=== PATIENT | female | born 1945 | race Caucasian/White ===

== ENCOUNTER → 2019-08-23 06:00 | Outpatient (REF) | payer MEDICARE, OTHER, SELFPAY | LOC: ANHLAB 06:00 | PROVIDERS: PCP Family Medicine; Visit Provider Nurse Practitioner | DX: C44.629 Squamous cell carcinoma of skin of left upper limb, including shoulder (principal) | CPT/HCPCS: 88305; 88331; 88332 ==

== ENCOUNTER 2020-05-25 15:37 | Outpatient (CLI) | payer MEDICARE, OTHER, SELFPAY ==
--- NOTE | ~2020-05-25 | XR_ITS ---
EXAMINATION: XR hip LT min 2V DATE: 05/25/2020 16:01 INDICATION: Left hip pain post injury 2 weeks prior TECHNIQUE: Anteroposterior , frog leg and cross-table lateral views of the left hip were obtained. COMPARISON: None. FINDINGS: Bone alignment is normal. No fracture. Old osteoarthritis at the left hip and bilateral sacroiliac em ints. Several phleboliths in the deep pelvis. Moderate lumbar spondylosis. IMPRESSION: 1. Mild left hip osteoarthritis. No acute osseous abnormality. Reviewed, dictated and finalized at location A.
== END 2020-05-25 15:38 | disposition home or self-care (01) ==
PROVIDERS: PCP Family Medicine; Visit Provider Nurse Practitioner Family
DX: M16.12 Unilateral primary osteoarthritis, left hip (principal)
CPT/HCPCS: 73502

== ENCOUNTER 2020-08-30 14:11 | Outpatient (CLI) | payer MEDICARE, OTHER, SELFPAY ==
--- NOTE | ~2020-08-30 | MM_ITS ---
EXAMINATION: MM screening josé miguel BI w jerome HISTORY: Screening TECHNIQUE: Craniocaudal and mediolateral oblique 3-D tomosynthesis images were obtained and synthetic 2-D images were generated. CAD analysis was submitted and interpreted. COMPARISON: Comparison to multiple prior studies sequentially, with oldest reviewed study dated 12/28. BREAST PARENCHYMAL COMPOSITION: There are scattered areas of fibroglandular density. FINDINGS: There is no evidence of suspicious mass, calcification, or architectural distortion to sugg est malignancy in either breast. There has been no suspicious interval change. IMPRESSION: 1. No mammographic evidence of malignancy. 2. Recommend routine screening mammography in one year. BI-RADS Category 1: Negative Reviewed, dictated and finalized at location A. [employer]ER
== END 2020-08-30 14:12 | disposition home or self-care (01) ==
LOC: ANHIMG 14:13
PROVIDERS: PCP Family Medicine; Visit Provider Family Medicine
DX: Z12.31 Encounter for screening mammogram for malignant neoplasm of breast (principal)
CPT/HCPCS: 77063; 77067

== ENCOUNTER 2022-03-05 13:42 | Outpatient (CLI) | payer MEDICARE, OTHER, SELFPAY ==
--- NOTE | ~2022-03-05 | XR_ITS ---
XR chest 2V DATE: 03/05/2022 14:00 INDICATION: Chronic cough TECHNIQUE: PA and lateral views COMPARISON: 08/31/2018 CT pulmonary scan 08/31/2018 PA and lateral chest FINDINGS: Bilateral calcified pulmonary granulomas and calcified hilar and mediastinal lymph nodes, c onsistent with old pulmonary granulomatous disease. No pulmonary infiltrate or consolidation, pleural effusion or pulmonary vascular congestion or pneumo thorax. No hilar or mediastinal enlargement. Normal heart size. Aortic arch calcification and minimal aortic unfolding. Osteopenia. Mild degenerative spurring of the thoracic and upper lumbar spine. IMPRESSION: Old pulmonary granulomatous disease No active cardiopulmonary disease Aortic calcification No significant change since 08/31/2018 Reviewed, dictated and finalized at location B.
[2022-03-05 14:28] LABS: Basophils Percent Auto 0.5 % (0.2-1.2); Eosinophils Percent Auto 0.2 % (0-4.4); Hematocrit 41.7 % (37.0-47.0); Hemoglobin 13.6 g/dL (12.0-15.0); Immature Granulocyte Absolute 0.03 K/mm3 (0.00-0.031); Immature Granulocyte Percent A 0.4 % (0-0.5); Lymphocytes Absolute Auto 1.15 K/mm3 (0.9-3.2); Lymphocytes Percent Auto 13.7 % (18.3-44.2); Mean Corpuscular HGB Conc 32.6 g/dl (32-36); Mean Corpuscular Hemoglobin 30.8 pg (26-34); Mean Corpuscular Volume 94.6 fl (80-100); Mean Platelet Volume 8.8 fl (7.4-10.4); Monocytes Percent Auto 11.6 % (2.6-8.5); Neutrophils Absolute Auto 6.2 K/mm3 (1.3-6.7); Neutrophils Percent Auto 73.6 % (45.5-73.1); Platelet Count Result 274 k/mm3 (150-375); Red Blood Count 4.41 M/mm3 (4.2-5.4); Red Cell Distribution Width 12.8 % (11.5-14.5); White Blood Count 8.4 K/mm3 (4.5-10.0)
[2022-03-05 16:37] LABS: Alanine Aminotransferase 17 U/L (6-35); Albumin Level 4.3 g/dL (3.5-5.1); Alkaline Phosphatase 102 U/L (38-126); Anion Gap 6 mmol/L (8-16); Aspartate Amino Transferase 31 U/L (14-36); Bilirubin,Total 0.4 mg/dL (0.2-1.3); Blood Urea Nitrogen 17 mg/dL (7-17); Calcium 9.4 mg/dL (8.4-10.2); Carbon Dioxide 29 mmol/L (22-30); Chloride 102 mmol/L (98-107); Estimated Glomerular Filt Rate > 60; Glucose 99 mg/dL (65-110); Potassium 3.7 mmol/L (3.4-5.0); Sodium 137 mmol/L (137-145)
== END 2022-03-05 13:43 | disposition home or self-care (01) ==
PROVIDERS: PCP Family Medicine; Visit Provider Nurse Practitioner Family
DX: R05.3 Chronic cough (principal); E78.2 Mixed hyperlipidemia; Z13.29 Encounter for screening for other suspected endocrine disorder; I70.0 Atherosclerosis of aorta; R91.8 Other nonspecific abnormal finding of lung field
CPT/HCPCS: 36415; 71046; 80053; 84443; 85025

== ENCOUNTER 2022-03-26 07:45 | Outpatient (CLI) | payer MEDICARE, OTHER, SELFPAY ==
--- NOTE | ~2022-03-26 | XR_ITS ---
EXAMINATION: XR barium swallow DATE: 03/26/2022 08:05 INDICATION: Dysphagia, unspecified. TECHNIQUE: The patient drank thick barium, gas-producing crystals, and thin barium. Fluoroscopy of th e hypopharynx and esophagus was performed. Fluoroscopy exposure time was 0.4 minutes. The total numbe r of images was 224. The dose-area product was 0.775 Gy-cm^2. COMPARISON: Chest CT 08/31 2018 FINDINGS: There is no mass or stricture of the esophagus. There is decreased primary and secondary es ophageal peristalsis. Abnormal tertiary waves were noted. There is no hiatal hernia. IMPRESSION: 1. Severe esophageal dysmotility. Reviewed, dictated and finalized at location A.
== END 2022-03-26 07:46 | disposition home or self-care (01) ==
LOC: ANHIMG 07:48
PROVIDERS: PCP Family Medicine; Visit Provider Nurse Practitioner Family
DX: R13.10 Dysphagia, unspecified (principal)
CPT/HCPCS: 74220

== ENCOUNTER 2022-04-09 13:45 | Outpatient (CLI) | payer MEDICARE, OTHER, SELFPAY ==
--- NOTE | 2022-04-10 13:22 | WPDPFTINT ---
PFT Procedure Performed PFT Procedure Performed Spirometry with Pre/Post Bronchodilator Plethysmography (Lung Vol) Diffusing Cap (DLCO) Flow Vol Loop PFT Interpretation This is a pulmonary function test with pre and post-bronchodilator spirometry, plethysmography and diffusing capacity. The test was performed and results interpreted in accordance with the 2019 and 2005 ATS/ERS Task Force guidelines respectively using the Global Lung Function Initiative-2012 reference equations. Patient demonstrated good effort and cooperation. Reproducibility criteria were met. The quality of the pre bronchodilator spirometry maneuver was Grade A and post bronchodilator spirometry maneuver was Grade A. Findings: Spirometry: The contour the inspiratory and expiratory flow tracing are normal. The pre bronchodilator FVC is 2.60 L, 108% predicted. The pre bronchodilator FEV1 is 1.84 L, 100% predicted. The pre bronchodilator FEV1: FVC ratio is 71%. The post bronchodilator FVC is 2.71 L, representing a 4% increase. The post bronchodilator FEV1 is 1.94 of L, representing a 6% increase. The post bronchodilator FEV1: FVC ratio 72%. Plethysmography: The total lung capacity is 4.42 L, 94% predicted. The functional residual capacity is 2.33 L 86% predicted. The residual volume is 1.69 L, 75% predicted. Diffusing capacity: The diffusing capacity unadjusted For hemoglobin and carboxyhemoglobin is 13.1, 70% predicted. The diffusing capacity adjusted for alveolar volume is 3.75, 88% predicted. Impression: The spirometry is normal without evidence of an obstructive abnormality. There is no significant improvement after inhaling a single dose of albuterol. The lung volumes are normal. The diffusing capacity is normal. There are no prior studies for comparison
== END 2022-04-09 13:46 | disposition home or self-care (01) ==
LOC: ANHPFT 13:46
PROVIDERS: PCP Family Medicine; Visit Provider Nurse Practitioner Family
DX: R06.02 Shortness of breath (principal); R05.3 Chronic cough
CPT/HCPCS: 94060; 94726; 94729

== ENCOUNTER 2022-04-25 14:17 | Outpatient (CLI) | payer MEDICARE, OTHER, SELFPAY ==
--- NOTE | ~2022-04-25 | XR_ITS ---
XR chest 2V DATE: 04/25/2022 14:49 INDICATION: Left-sided chest pain, cough, yellow phlegm production. History of asthma. TECHNIQUE: PA and lateral views COMPARISON: 03/05/2022 PA and lateral chest FINDINGS: Normal heart size. Aortic arch calcification. Moderate hyperinflation. There is old pulmonary granulomatous disease. No pulmonary infiltrate or con solidation, pleural effusion or pulmonary vascular congestion or pneumothorax. Scoliosis and degenerative spurring of the thoracic and lumbar spine. IMPRESSION: Moderate hyperinflation; no active cardiopulmonary disease or significant change since Reviewed, dictated and finalized at location A. IMPRESSION: Moderate hyperinflation; no active cardiopulmonary disease or signi ficant change since 03/05/2022
== END 2022-04-25 14:18 | disposition home or self-care (01) ==
PROVIDERS: PCP Family Medicine; Visit Provider Nurse Practitioner Family
DX: R05.9 Cough, unspecified (principal); R91.8 Other nonspecific abnormal finding of lung field
CPT/HCPCS: 71046

== ENCOUNTER 2022-04-26 19:26 | Emergency (ER) | payer MEDICARE, OTHER, SELFPAY ==
[2022-04-26] VITALS (17 sets, daily range): BP systolic 156–171; BP diastolic 79–90; PULSE 71–92; RESP 0–24; TEMP 37.1; O2SAT 93–100
--- NOTE | ~2022-04-26 | XR_ITS ---
EXAMINATION: XR chest 1V portable DATE: 04/26/2022 20:09 INDICATION: 3 weeks of cough and shortness of breath TECHNIQUE: frontal view of the chest was obtained. COMPARISON: Chest radiograph dated 04/25/2022 FINDINGS: Again seen are a few scattered bilateral small calcified pulmonary nodules along with calcified bilat eral hilar and mediastinal lymph nodes consistent with old granulomatous disease. No new airspace opa cities, pulmonary edema, pleural effusion or pneumothorax. The cardiomediastinal silhouette is normal . Mild thoracolumbar levocurvature with moderate spondylosis. IMPRESSION: 1. No acute cardiopulmonary disease. Reviewed, dictated and finalized at location A.
--- NOTE | ~2022-04-26 | CT_ITS ---
EXAMINATION: CTA chest PE protocol DATE: 04/26/2022 22:04 INDICATION: Shortness of breath, COVID positive and elevated d-dimer. TECHNIQUE: Computed tomography (CT) pulmonary angiogram of the chest was performed with 100 mL Omnipa que-350 intravenous contrast. Additional 3D reconstructions utilizing coronal maximum intensity proje ction (MIP) were performed. Automated exposure control and iterative reconstruction technique were em ployed. The dose-length product was 237.90 mGy-cm. COMPARISON: 08/31/2018 FINDINGS: Excellent contrast opacification of the pulmonary arteries. There is mild streak artifact from dense contrast in the superior vena cava and right atrium. Mild to moderate scattered respiratory motion ar tifact. This decreases sensitivity in some of the smaller subsegmental pulmonary arteries. There are few scattered calcified pulmonary nodules along with calcified mediastinal and bilateral hilar lymph nodes consistent with old granulomatous disease. Mild atelectasis at the bilateral posterior lung bas es. No pneumonia, pulmonary edema, pleural effusion or pneumothorax. Heart size is normal. No pericar dial effusion. Thoracic aorta is normal in caliber with no dissection. Small sliding-type hiatal shane ia. Diffuse mild wall thickening in the mid to distal esophagus consistent with esophagitis which cou ld be related to reflux. No pathologically enlarged thoracic lymphadenopathy. Incompletely visualized at least 6.6 cm cyst in the right hepatic lobe. Moderate thoracic and lumbar spondylosis. IMPRESSION: 1. No pulmonary embolism. Sensitivity decreased in some of the smaller subsegmental pulmonary arterie s due to some scattered respiratory motion. 2. Small sliding-type hiatal hernia with wall thickening the mid to distal esophagus suggesting esoph agitis which could be due to reflux. Reviewed, dictated and finalized at location A. IMPRESSION: 1. No pulmonary embolism. Sensitivity decreased in some of the smaller subsegme ntal pulmonary arteries due to some scattered respiratory motion. 2. Small sliding-type hiatal hernia with wall thickening the mid to distal esop hagus suggesting esophagitis which could be due to reflux.
--- NOTE | 2022-04-26 19:39 | ECG_ITS ---
Measurements Intervals [place] Rate: 76 P: 54 MN: 171 QRS: -16 QRSD: 91 T: 50 QT: 401 QTc: 453 Interpretive Statements SINUS RHYTHM VOLTAGE CRITERIA FOR LVH BASELINE ARTIFACT- I, II, III, AVL BORDERLINE ECG NO PREVIOUS ECG AVAILABLE FOR COMPARISON Electronically Signed On 04-26-2022 20:39:40 CDT by Wyatt Shay D.O.
--- NOTE | 2022-04-26 19:40 | ED.GENADULT ---
HPI - General Adult General Chief complaint: Shortness of Breath/Dyspnea Stated complaint: SOB/ASTHMA Source: RN notes reviewed History of Present Illness HPI narrative: Patient presents emergency department from home via EMS for shortness of breath. Patient states has been feeling short of breath progressively for the past 5 weeks. She states that shortness of breath abdomen progressively worse and is worse with activity states has been associate with a cough this been yellow in color. States she only recently went to the doctor and was diagnosed with cystic lungs and been placed on an inhaler states she is post be seen a claim representative but is not seen 1 yet. She denies any fevers or chills chest pain abdominal pain nausea vomiting or any other symptoms Related Data Home Medications Medication Instructions Recorded Confirmed aspirin 81 mg tablet,delayed 81 mg PO DAILY 07/19/19 03/28/22 release (Adult Low Dose Aspirin) Allergies Allergy/AdvReac Type Severity Reaction Status Date / Time codeine Allergy Unknown Rash Verified 04/26/22 19:37 hydrochlorothiazide Allergy Unknown Unknown Verified 04/26/22 19:37 indapamide Allergy Unknown Unknown Verified 04/26/22 19:37 lisinopril Allergy Unknown Cough Verified 04/26/22 19:37 Review of Systems Review of Systems: Gen.: Denies fevers or chills ENT: Denies congestion Respiratory: See HPI CV: Denies chest pain or palpitations GI: Denies abdominal pain nausea, emesis or diarrhea Musculoskeletal: Denies back pain or muscle pain Neuro: Denies numbness, tingling, weakness or focal weakness Skin: Denies rash Except as documented, all other systems reviewed and negative [facility] Past Medical History Medical History BMI 24.0-24.9, adult High blood pressure Family History Family History Mother Hypertension Father Cerebrovascular accident Family history of lung cancer Family history of coronary artery disease Social History Social History Smoking status: Never smoker Alcohol intake: current Exam Narrative: APPEARANCE: No acute distress, nontoxic, resting in bed HEENT: Normocephalic, atraumatic OMM RESPIRATORY: No respiratory distress, wheezing throughout the bilateral lung vergara with decreased breath sounds in the bases no rhonchi rales CARDIOVASCULAR: Regular rate and rhythm without murmurs rubs or gallops. ABDOMINAL: Soft, nontender, nondistended, no rebound or guarding MUSCULOSKELETAl: Moves all extremities. No clubbing, cyanosis or edema. Bilateral calves soft and nontender NEURO: Awake and alert. Following commands, speech normal, no focal deficits SKIN:: Warm, dry. Normal Color PSYCHIATRIC: Normal affect/mood, Course Course Emergency Course: Patient states she is feeling much better repeat lung exam clear to auscultation bilaterally patient will get up and ambulate in the ED with pulse ox is staying in the mid 90s Dr. Bautista follow-up in 1-2 days for further on-call physician treatment and evaluation level paged for possible monoclonal antibody set up Discussed with patient results of workup and diagnosis. Discussed need for follow-up with primary care, proper use of medication, and reasons to return to the emergency department. Patient understands and agrees to current treatment plan patient states she has an inhaler at home Vital Signs Vital signs: Vital Signs Temperature 98.7 F 04/26/22 19:27 Pulse Rate 79 04/26/22 19:27 Respiratory Rate 23 H 04/26/22 19:27 Blood Pressure 164/90 H 04/26/22 19:27 Pulse Oximetry 93 04/26/22 19:27 Oxygen Delivery Room Air 04/26/22 19:27 Temperature 98.7 F 04/26/22 19:27 Pulse Rate 88 04/27/22 00:30 Respiratory Rate 17 04/27/22 00:30 Blood Pressure 156/81 H 04/26/22 22:16 Pulse Oximetry 98 04/27/22 00:30 Oxygen Deliver
[2022-04-26 20:02] LABS: Basophils Percent Auto 0.2 % (0.2-1.2); Eosinophils Absolute Auto 0.1 K/mm3 (0-0.3); Eosinophils Percent Auto 1.5 % (0-4.4); Hematocrit 43.1 % (37.0-47.0); Hemoglobin 14.1 g/dL (12.0-15.0); Immature Granulocyte Absolute 0.03 K/mm3 (0.00-0.031); Immature Granulocyte Percent A 0.3 % (0-0.5); Lymphocytes Absolute Auto 1.32 K/mm3 (0.9-3.2); Lymphocytes Percent Auto 13.7 % (18.3-44.2); Mean Corpuscular HGB Conc 32.7 g/dl (32-36); Mean Corpuscular Hemoglobin 31.2 pg (26-34); Mean Corpuscular Volume 95.4 fl (80-100); Mean Platelet Volume 8.9 fl (7.4-10.4); Monocytes Absolute Auto 0.6 K/mm3 (0.1-0.6); Monocytes Percent Auto 6.6 % (2.6-8.5); Neutrophils Absolute Auto 7.5 K/mm3 (1.3-6.7); Neutrophils Percent Auto 77.7 % (45.5-73.1); Platelet Count Result 210 k/mm3 (150-375); Red Blood Count 4.52 M/mm3 (4.2-5.4); White Blood Count 9.7 K/mm3 (4.5-10.0)
[2022-04-26 20:06] LABS: Lactic Acid Reflex 1.4 mmol/L (0.7-2.0)
[2022-04-26] MEDS: IPRATROPIUM BR 0.02% INH SOLN 0.5 MG/2.5 ML VIAL INHALATION (20:13)
[2022-04-26] MEDS: ALBUTEROL SULFATE NEB 2.5 MG/3 ML INH 5 MG INHALATION (20:14)
[2022-04-26] MEDS: methylPREDNISolone SOD SUCC 125 MG VIAL IV PUSH (20:15)
[2022-04-26 20:16] LABS: Partial Thromboplastin Time 21.6 SECONDS (22.3-36.8); Prothrombin Time 13.2 Seconds (11.1-14.7)
[2022-04-26 20:27] LABS: NT Pro B Type Natriuretic Pept 151 pg/mL (5-100); Troponin I < 0.012 ng/mL (0.000-0.034)
[2022-04-26 20:34] LABS: SARS-CoV-2 RNA PCR Positive
[2022-04-26 21:02] LABS: Alanine Aminotransferase 22 U/L (6-35); Albumin Level 4.1 g/dL (3.5-5.1); Alkaline Phosphatase 96 U/L (38-126); Anion Gap 11 mmol/L (8-16); Aspartate Amino Transferase 39 U/L (14-36); Bilirubin,Total 0.6 mg/dL (0.2-1.3); Blood Urea Nitrogen 17 mg/dL (7-17); Carbon Dioxide 24 mmol/L (22-30); Chloride 104 mmol/L (98-107); Estimated CRCL calculation 45 ml/min; Estimated Glomerular Filt Rate > 60; Glucose 107 mg/dL (65-110); Potassium 3.3 mmol/L (3.4-5.0); Sodium 139 mmol/L (137-145)
[2022-04-27] VITALS (7 sets, daily range): BP systolic 155–158; BP diastolic 78–89; PULSE 78–92; RESP 10–31; O2SAT 94–98
[2022-04-27] MEDS: POTASSIUM CHLORIDE 20 MEQ TABLET PO (01:22)
== END 2022-04-27 01:30 | disposition home or self-care (01) ==
PROVIDERS: Emergency Provider Emergency Medicine; PCP Family Medicine
DX: U07.1 COVID-19 (principal); I10 Essential (primary) hypertension; Z79.82 Long term (current) use of aspirin; Z79.51 Long term (current) use of inhaled steroids
CPT/HCPCS: 36415; 71045; 71275; 80053; 83605; 83880; 84484; 85025; 85380; 85610; 85730; 87040; 93005; 94640; 96374; 99284; A9270; C9803; J2930; Q9967; U0003; U0005

== ENCOUNTER 2022-05-11 12:06 | Outpatient (CLI) | payer MEDICARE, OTHER, SELFPAY ==
[2022-05-11 12:26] LABS: Cholesterol 274 mg/dL (0-200); HDL Direct 61 mg/dL; Triglycerides 161 mg/dL (<150)
[2022-05-11 12:37] LABS: LDL Cholesterol Direct 166 mg/dL
== END 2022-05-11 12:07 | disposition home or self-care (01) ==
LOC: ANHLAB 12:08
PROVIDERS: PCP Family Medicine; Visit Provider Internal Medicine Cardiovascular Disease
DX: E78.2 Mixed hyperlipidemia (principal)
CPT/HCPCS: 36415; 80061

== ENCOUNTER 2022-06-07 07:25 | Outpatient (CLI) | payer MEDICARE, OTHER, SELFPAY ==
--- NOTE | 2022-06-07 07:40 | ECHO_ITS ---
Patient Info Name: Silvia Dougherty Age: 76 years : 1945 Gender: Female Ht: 62 in Wt: 123 lbs BSA: 1.57 m2 HR: 62 bpm BP: 159 / 93 mmHg Technical Quality: Good Exam Date: 06/07/2022 7:59 AM Exam Location: [facility] Pulmonary Patient Status: Outpatient Admit Date: 06/07/2022 Staff Ordering Physician: Wyatt Shay DO Quality Coordinator: Farida Shields RDCS Attending Provider: Wyatt Shay DO Referring Physician: Jaspal HOLMAN; Exam Type: CA echo doppler color flow Study Info Indications R06.02 - Shortness of breath Complete two-dimensional, color flow and Doppler transthoracic echocardiogram is performed. Strain analysis performed. Summary 1. Complete two-dimensional, color flow and Doppler transthoracic echocardiogram is performed. 2. Left ventricular chamber dimension is normal. 3. Left ventricular systolic function is normal, estimated at 60-65%. 4. The left ventricular diastolic function is grade I diastolic dysfunction. 5. E/e' 16 is elevated. 6. Global longitudinal strain is slightly abnormal at -16.2%. 7. Left atrial chamber dimension is mildly enlarged. 8. There is mild aortic valve sclerosis. 9. There is mild mitral valve regurgitation. 10. No pulmonary hypertension, estimated pulmonary arterial systolic pressure is 21 mmHg. Left Ventricle E/e' 16 is elevated. Global longitudinal strain is slightly abnormal at -16.2%. Left ventricular chamber dimension is normal. Left ventricular systolic function is normal, estimated at 60-65%. The left ventricular diastolic function is grade I diastolic dysfunction. Right Ventricle Right ventricular chamber dimension is normal. Right ventricular systolic function is normal. Left Atria Left atrial chamber dimension is mildly enlarged. Right Atria Right atrial chamber dimension is normal. Aortic Valve The aortic valve is trileaflet. There is mild aortic valve sclerosis. There is no aortic valve stenosis. There is no aortic valve regurgitation. Pulmonic Valve There is no pulmonic regurgitation. Mitral Valve There is no mitral valve stenosis. There is mild mitral valve regurgitation. Tricuspid Valve There is no tricuspid valve regurgitation. No pulmonary hypertension, estimated pulmonary arterial systolic pressure is 21 mmHg. Pericardium/Pleural There is no pericardial effusion. Inferior Vena Cava Normal inferior vena cava with >50% collapse upon inspiration consistent with normal right atrial pressure, 5 mmHg. Aorta The aortic root size at the sinus of Valsalva is normal. Left Ventricular Outflow Tract Name Value Normal LVOT 2D LVOT Diameter 2.0 cm LVOT Doppler LVOT Peak Gradient 4 mmHg LVOT Mean Gradient 2 mmHg LVOT VTI 26 cm LVOT VTI/AV VTI Ratio 0.7 LVOT Stroke Volume 80 ml LVOT CO 4.4 l/min LVOT CI 2.8 l/min/m2 Pulmonic Valve
--- NOTE | 2022-06-07 07:41 | EST_ITS ---
Patient Info Name: Silvia Dougherty Age: 76 years : 1945 Gender: Female Ht: 62 in Wt: 123 lbs BSA: 1.57 m2 HR: 62 bpm BP: 163 / 93 mmHg Heart Rhythm: Sinus Rhythm Exam Date: 06/07/2022 8:27 AM Exam Location: [facility] Stress Patient Status: Outpatient Admit Date: 06/07/2022 Staff Ordering Physician: Wyatt Shay DO Attending Provider: Wyatt Shay DO Exercise Technologist: Flory Zaldivar CT Exercise Physician: Wyatt Shay DO Exam Type: CA stress test treadmill Study Info Indications R06.02 - Shortness of breath A treadmill exercise stress test was performed. Summary 1. 1. Negative Deuce exercise stress test for ischemic ST changes by ECG criteria. 2. 2. Good functional capacity, achieving 7 METs of workload. 3. 3. Baseline hypertension. 4. 4. Appropriate HR response to exercise. 5. 5. Appropriate HR recovery at 1 minute post exercise. 6. 6. No imaging with stress testing. 7. 7. Patient informed of the above results. Protocol: Deuce Stress ECG Details Stage: REST Duration (min): 1 min : 57 sec Speed (mph): 0.0 Grade (%): 0 HR (bpm): 62 SBP (mmHg): 190 DBP (mmHg): 99 METS: --- Stage: REST Duration (min): 10 min : 25 sec Speed (mph): 0.0 Grade (%): 0 HR (bpm): 66 SBP (mmHg): 163 DBP (mmHg): 93 METS: --- Stage: STAGE 1 Duration (min): 1 min : 0 sec Speed (mph): 1.7 Grade (%): 10 HR (bpm): 87 SBP (mmHg): 163 DBP (mmHg): 93 METS: --- Stage: STAGE 1 Duration (min): 2 min : 0 sec Speed (mph): 1.7 Grade (%): 10 HR (bpm): 101 SBP (mmHg): 163 DBP (mmHg): 93 METS: --- Stage: STAGE 1 Duration (min): 3 min : 0 sec Speed (mph): 1.7 Grade (%): 10 HR (bpm): 108 SBP (mmHg): 182 DBP (mmHg): 97 METS: --- Stage: STAGE 2 Duration (min): 1 min : 0 sec Speed (mph): 2.5 Grade (%): 12 HR (bpm): 116 SBP (mmHg): 182 DBP (mmHg): 97 METS: --- Stage: STAGE 2 Duration (min): 2 min : 0 sec Speed (mph): 2.5 Grade (%): 12 HR (bpm): 124 SBP (mmHg): 182 DBP (mmHg): 97 METS: --- Stage: STAGE 2 Duration (min): 3 min : 0 sec Speed (mph): 2.5 Grade (%): 12 HR (bpm): 129 SBP (mmHg): 174 DBP (mmHg): 108 METS: --- Stage: RECOVERY Duration (min): 0 min : 59 sec Speed (mph): 0.0 Grade (%): 0 HR (bpm): 103 SBP (mmHg): 189 DBP (mmHg): 107 METS: --- Stage: RECOVERY Duration (min): 1 min : 45 sec Speed (mph): 0.0 Grade (%): 0 HR (bpm): 80 SBP (mmHg): 189 DBP (mmHg): 107 METS: --- Rest HR: 66 bpm Peak HR: 129 bpm Rest Sys BP: 163 mmHg Peak Sys BP: 189 mmHg Max Pred HR: 142 bpm % Max Pred HR: 91 % Target HR: 121 bpm Max RPP: 24,381 bpm*mmHg Phillips Score: 0 Termination Reason: Reached target heart rate or workload Cardiac Symptoms: Shortness of breath Max ST Seg Deviation: -1.30 mm Total Time: 6 min : 0 sec Rest Ramey BP: 93 mmHg
== END 2022-06-07 07:26 | disposition home or self-care (01) ==
LOC: ANHCARD 07:26
PROVIDERS: PCP Family Medicine; Visit Provider Internal Medicine Cardiovascular Disease
DX: R06.02 Shortness of breath (principal); I08.0 Rheumatic disorders of both mitral and aortic valves
CPT/HCPCS: 93017; 93306

== ENCOUNTER 2022-07-13 11:54 | Outpatient (CLI) | payer MEDICARE, OTHER, SELFPAY ==
[2022-07-13 12:19] LABS: Alanine Aminotransferase 28 U/L (6-35); Albumin Level 4.2 g/dL (3.5-5.1); Alkaline Phosphatase 88 U/L (38-126); Anion Gap 5 mmol/L (8-16); Aspartate Amino Transferase 33 U/L (14-36); Bilirubin,Total 0.7 mg/dL (0.2-1.3); Blood Urea Nitrogen 16 mg/dL (7-17); Calcium 9.1 mg/dL (8.4-10.2); Carbon Dioxide 29 mmol/L (22-30); Chloride 104 mmol/L (98-107); Cholesterol 148 mg/dL (0-200); Estimated Glomerular Filt Rate > 60; Glucose 96 mg/dL (65-110); HDL Direct 59 mg/dL; Potassium 4.4 mmol/L (3.4-5.0); Sodium 138 mmol/L (137-145); Triglycerides 54 mg/dL (<150)
[2022-07-13 12:31] LABS: LDL Cholesterol Direct 63 mg/dL
== END 2022-07-13 11:55 | disposition home or self-care (01) ==
LOC: ANHLAB 11:56
PROVIDERS: PCP Family Medicine; Visit Provider Internal Medicine Cardiovascular Disease
DX: E78.2 Mixed hyperlipidemia (principal)
CPT/HCPCS: 36415; 80053; 80061

== ENCOUNTER 2022-07-25 00:27 | Day surgery (SDC) | payer MEDICARE, OTHER, SELFPAY ==
[2022-07-18 11:18] VITALS: BMI 22.6
--- NOTE | 2022-07-24 10:58 | PC.NURSE ---
During pt interview pt stated that she had a rash that her supervisor cooler service told her is very contagious by coughing and/or sneezing. Pt see's Dr. Keen. Pt signed a waiver in office for release of information regarding this, I spoke with Dr. Katlyn Isidro delinquency prevention officer and patient is not contagious. Dr. Keen spoke with pt during visit to sign release and gave her this information. It is okay for pt to proceed with procedure.
[2022-07-25 07:59] VITALS: BP 154/75; PULSE 63; RESP 18; TEMP 36.2; O2SAT 98
[2022-07-25] MEDS: LACTATED RINGERS 1,000 ML 150 ML IV CONT (08:14)
--- NOTE | 2022-07-25 08:37 | PM.HPGS ---
History of Present Illness History of Present Illness Consent: Risks, benefits, and alternatives have been discussed and questions answered. Patient agrees to proceed with procedure. Chief complaint: dysphagia Narrative: Silvia Dougherty is a 76 year old female Presents for EGD. Patient has difficulty swallowing. She states food will catch in her throat and has difficulty passing the esophagus. Previous CT scan suggested distal esophageal thickening raising the question of esophagitis. Patient denies any heartburn however. Patient also has a history of modified barium swallow that showed severe esophageal dysmotility. At this point patient presents for EGD to assess for esophageal narrowing and possible dilatation. Further recommendations may be given after endoscopy. Review of Systems Review of Systems: Review of systems noncontributory. [facility] Past Medical History Medical History BMI 24.0-24.9, adult High blood pressure Family History Family History Mother Hypertension Father Cerebrovascular accident Family history of lung cancer Family history of coronary artery disease Hypertension Sibling No problems noted. 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 Gender identity (if verbalized by the patient): Female Spiritual care concerns: No Meds Home Medications and Allergies Home Medications Medication Instructions Recorded Confirmed Type aspirin 81 mg tablet,delayed 81 mg PO DAILY 07/19/19 07/18/22 History release (Adult Low Dose Aspirin) conjugated estrogens 0.625 mg See Rx Instructions .Route 08/21/20 07/18/22 Rx tablet (Premarin) .COMPLEX #90 tabs triamterene 75 0.5 tablet PO DAILY 05/10/22 07/18/22 History mg-hydrochlorothiazide 50 mg tablet atorvastatin 40 mg tablet 40 mg PO DAILY #90 tabs 05/13/22 07/18/22 Rx halobetasol propionate 0.05 % 1 applic topical BID 07/18/22 07/18/22 History topical cream Allergies Allergy/AdvReac Type Severity Reaction Status Date / Time codeine Allergy Unknown Rash Verified 07/25/22 07:57 indapamide Allergy Unknown Unknown Verified 07/25/22 07:57 Vital Signs Vital Signs - 24 hr 07/25/22 07:59 Temperature 97.1 F L Pulse Rate 63 Respiratory Rate 18 Blood Pressure 154/75 H Pulse Oximetry 98 Oxygen Delivery Room Air Exam Narrative: Physical exam reveals patient be alert. Vital signs stable. HEENT exam is unremarkable. Patient is anicteric. Lungs are clear to auscultation and percussion. Heart is without murmur or extra sounds. Abdomen bowel sounds present soft nontender with no organomegaly. Digital external rectal exam is normal. Assessment and Plan Assessment and plan (1) Dysphagia: Code(s): R13.10 - Dysphagia, unspecified Status: Acute Assessment and Plan: Patient has difficulty swallowing. Plan for EGD to assess for esophageal narrowing and possible dilatation. Further recommendations may be given after endoscopy. (2) Esophageal dysmotility: Code(s): K22.4 - Dyskinesia of esophagus Status: Acute Assessment and Plan: Soft diet, elevate head of bed her helpful. Difficult to overcome esophageal dysmotility.
--- NOTE | 2022-07-25 09:22 | WPDANESEPPF ---
Anes - Initial Pre Proc Eval Procedure: Operation Date: 07/25/22 09:15 Proposed Procedures p Esophagogastroduodenoscopy EGD - Anand Pham MD Date/Time: 07/25/22 09:22 Surgeon: Anand Pham MD Pre Op Diagnosis: dysphagia Patient Data Age: 76 Gender: F Height: 1.57 m Weight: 61.7 kg Last Vital Signs Temp 97.1 F L 07/25/22 07:59 Pulse 63 07/25/22 07:59 Resp 18 07/25/22 07:59 BP 154/75 H 07/25/22 07:59 Pulse Ox 98 07/25/22 07:59 O2 Del Method Room Air 07/25/22 07:59 Allergies Allergy/AdvReac Type Severity Reaction Status Date / Time codeine Allergy Unknown Rash Verified 07/25/22 07:57 indapamide Allergy Unknown Unknown Verified 07/25/22 07:57 Home Medications Medication Instructions Recorded Confirmed Type aspirin 81 mg tablet,delayed 81 mg PO DAILY 07/19/19 07/18/22 History release (Adult Low Dose Aspirin) conjugated estrogens 0.625 mg See Rx Instructions .Route 08/21/20 07/18/22 Rx tablet (Premarin) .COMPLEX #90 tabs triamterene 75 0.5 tablet PO DAILY 05/10/22 07/18/22 History mg-hydrochlorothiazide 50 mg tablet atorvastatin 40 mg tablet 40 mg PO DAILY #90 tabs 05/13/22 07/18/22 Rx halobetasol propionate 0.05 % 1 applic topical BID 07/18/22 07/18/22 History topical cream Patient hx anesthesia problems: none Family hx anesthesia problems: none Results Review: All pre-operative results and documents have been reviewed as part of the pre-operative evaluation. [facility] Past Medical History Medical History BMI 24.0-24.9, adult High blood pressure Family History Family History Mother Hypertension Father Cerebrovascular accident Family history of lung cancer Family history of coronary artery disease Hypertension Sibling No problems noted. 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 Gender identity (if verbalized by the patient): Female Spiritual care concerns: No Anes - Eval Final PreProcedure Day of Procedure 07/25/22 09:22 Patient weight: normal Heart: regular rate and rhythm Lungs: clear to auscultation Airway: Mallampati scale class II Neurological: alert and oriented Last oral intake: >/= 8 hours ASA classification: II Emergent: no Anesthetic plan: proceed Anesthesia type and monitoring: general GIVS and standard monitoring Results Review: All pre-operative results and documents have been reviewed as part of the pre-operative evaluation. Informed Consent: The patient's anesthetic plan and its attendant risks and benefits were discussed with the patient/family/POA. Questions were solicited and answers provided to the satisfaction of the patient/family/POA.
[2022-07-25 09:36] VITALS: BP 145/73; PULSE 65; RESP 20; O2SAT 96
[2022-07-25 09:46] VITALS: BP 161/81; PULSE 60; RESP 23; O2SAT 99
[2022-07-25 09:56] VITALS: BP 166/78; PULSE 61; RESP 24; O2SAT 98
== END 2022-07-25 10:10 | disposition home or self-care (01) ==
PROVIDERS: PCP Family Medicine; Visit Provider Internal Medicine Gastroenterology
PROC: 0DJ08ZZ Inspection of Upper Intestinal Tract, Via Natural or Artificial Opening Endoscopic (ICD-10-PCS; CPT 43235; principal; 2022-07-25 09:15)
DX: R13.10 Dysphagia, unspecified (principal); K22.4 Dyskinesia of esophagus; Q39.4 Esophageal web; Z79.82 Long term (current) use of aspirin
CPT/HCPCS: 43235; 43450; J2704; J7120

== ENCOUNTER 2022-09-07 15:12 | Emergency (ER) | payer MEDICARE, OTHER, SELFPAY ==
[2022-09-07 15:37] VITALS: BP 155/72; PULSE 72; RESP 16; TEMP 36.3; O2SAT 96
--- NOTE | 2022-09-07 17:02 | ED.ANIMALBIT ---
HPI - Animal Bite General Chief Complaint: Animal Bite Stated Complaint: animal bite Time Seen by Provider: 09/07/22 17:02 History of Present Illness HPI narrative: 68-year-old female presents emergency room for evaluation of a cat bite to her right forearm. States that she was bitten multiple times by her cat yesterday morning. States the cat's vaccination status is up-to-date. Patient tetanus status is up-to-date. Patient states that she has been taking an old prescription of amoxicillin given to her by her primary care provider several years ago. Related Data Home Medications Medication Instructions Recorded Confirmed aspirin 81 mg tablet,delayed 81 mg PO DAILY 07/19/19 07/18/22 release (Adult Low Dose Aspirin) triamterene 75 0.5 tablet PO DAILY 05/10/22 07/18/22 mg-hydrochlorothiazide 50 mg tablet halobetasol propionate 0.05 % 1 applic topical BID 07/18/22 07/18/22 topical cream Allergies Allergy/AdvReac Type Severity Reaction Status Date / Time codeine Allergy Unknown Rash Verified 09/07/22 15:41 indapamide Allergy Unknown Unknown Verified 09/07/22 15:41 Review of Systems Review of Systems: CONSTITUTIONAL: Denies fever, chills, or sweats. EYES: Denies visual changes, redness, or discharge. ENT: Denies rhinorrhea, congestion, sore throat, or otalgia. CARDIOVASCULAR: Denies chest pain, palpitations, or edema. RESPIRATORY: Denies cough or dyspnea. GASTROINTESTINAL: Denies abdominal pain, nausea, vomiting, or diarrhea. GENITOURINARY: Denies dysuria or hematuria. SKIN: Denies rash or itching. MUSCULOSKELETAL: Denies back pain, joint pain, or myalgia. NEUROLOGIC: Denies headache, numbness, dizziness, or weakness. PSYCHIATRIC: Denies anxiety or depression. [facility] Past Medical History Medical History BMI 24.0-24.9, adult High blood pressure Family History Family History Mother Hypertension Father Cerebrovascular accident Family history of lung cancer Family history of coronary artery disease Hypertension Sibling No problems noted. 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 Gender identity (if verbalized by the patient): Female Spiritual care concerns: No Exam Narrative: GENERAL: Well-appearing, well-nourished, no physical limitations, and in no acute distress. HEAD: Normocephalic, atraumatic. EYES: Conjunctivae normal, PERRLA and EOMI. CHEST: Clear to auscultation. No respiratory distress. No wheezes rales or rhonchi. HEART: Regular rate and rhythm. No murmur heard. Normal peripheral pulses. EXTREMITIES: Normal range of motion. No edema. No clubbing or cyanosis SKIN: Right forearm: Multiple superficial puncture bell to lives anterior posterior surfaces of the right forearm surrounding erythema. No signs of lymphangitic spread. Full range of motion of elbow and radiocarpal joints. No distal soft tissue swelling. Neurovascular is intact distally. NEURO: No focal deficits. Alert and oriented x3. MAEW. CN's II-XI intact bilaterally, normal gait PSYCH: Cooperative. Normal mood and affect. Course Vital Signs Vital signs: Vital Signs Temperature 36.3 C L 09/07/22 15:37 Pulse Rate 72 09/07/22 15:37 Respiratory Rate 16 09/07/22 15:37 Blood Pressure 155/72 H 09/07/22 15:37 Pulse Oximetry 96 09/07/22 15:37 Temperature 36.3 C L 09/07/22 15:37 Pulse Rate 72 09/07/22 15:37 Respiratory Rate 16 09/07/22 15:37 Blood Pressure 155/72 H 09/07/22 15:37
[2022-09-07] MEDS: TETANUS,DIPHTHERIA,AC PERTUSSIS ADULT (0.5 ML) BOOSTRIX IM (17:16)
== END 2022-09-07 17:17 | disposition home or self-care (01) ==
LOC: ANHED 17:08
PROVIDERS: Emergency Provider Nurse Practitioner Family; PCP Family Medicine
DX: S51.851A Open bite of right forearm, initial encounter (principal); Z23 Encounter for immunization; I10 Essential (primary) hypertension; Z77.22 Contact with and (suspected) exposure to environmental tobacco smoke (acute) (chronic); W55.01XA Bitten by cat, initial encounter
CPT/HCPCS: 90471; 90715; 99283

== ENCOUNTER 2022-09-19 13:06 | Outpatient (CLI) | payer MEDICARE, OTHER, SELFPAY ==
[2022-09-19 13:42] LABS: Anion Gap 5 mmol/L (8-16); Blood Urea Nitrogen 18 mg/dL (7-17); Calcium 9.2 mg/dL (8.4-10.2); Carbon Dioxide 33 mmol/L (22-30); Chloride 101 mmol/L (98-107); Estimated Glomerular Filt Rate > 60; Glucose 97 mg/dL (65-110); Sodium 139 mmol/L (137-145)
== END 2022-09-19 13:07 | disposition home or self-care (01) ==
LOC: ANHLAB 13:08
PROVIDERS: PCP Family Medicine; Visit Provider Nurse Practitioner Family
DX: I10 Essential (primary) hypertension (principal)
CPT/HCPCS: 36415; 80048

== ENCOUNTER 2022-12-31 10:25 | Outpatient (CLI) | payer MEDICARE, OTHER, SELFPAY ==
--- NOTE | ~2022-12-31 | MM_ITS ---
EXAMINATION: MM screening [facility] BI w [facility] HISTORY: Screening mammogram TECHNIQUE: Craniocaudal and mediolateral oblique 3-D tomosynthesis images were obtained and synthetic 2-D images were generated. CAD analysis was submitted and interpreted. COMPARISON: 09/17/2020, 08/03/2019, 05/02/2016 BREAST PARENCHYMAL COMPOSITION: There are scattered areas of fibroglandular density. FINDINGS: No suspicious mass, calcification, or architectural distortion are identified in either lauro ast to suggest malignancy. There has been no suspicious interval change. IMPRESSION: 1. No mammographic evidence of malignancy. 2. Recommend routine screening mammography in one year. BI-RADS Category 1: Negative Reviewed, dictated and finalized at location A.
== END 2022-12-31 10:26 | disposition home or self-care (01) ==
PROVIDERS: PCP Family Medicine; Visit Provider Family Medicine
DX: Z12.31 Encounter for screening mammogram for malignant neoplasm of breast (principal)
CPT/HCPCS: 77063; 77067

== ENCOUNTER 2023-01-03 13:48 | Outpatient (CLI) | payer MEDICARE, OTHER, SELFPAY ==
--- NOTE | ~2023-01-03 | XR_ITS ---
XR shoulder RT min 2V 01/03/2023 14:10 Indication: Right shoulder pain. Limited range of motion. Procedure: 4 views right shoulder Comparison: 08/14/2009 Findings: There is mild polyarticular osteoarthritis of the right shoulder. No fracture, subluxation or dislocation. No significant soft tissue abnormality. Impression: 1: Mild polyarticular osteoarthritis. Reviewed, dictated and finalized at location B. Impression: 1: Mild polyarticular osteoarthritis.
== END 2023-01-03 13:49 | disposition home or self-care (01) ==
PROVIDERS: PCP Family Medicine; Visit Provider Family Medicine
DX: M19.011 Primary osteoarthritis, right shoulder (principal)
CPT/HCPCS: 73030

== ENCOUNTER 2023-01-07 11:25 | Emergency (ER) | payer MEDICARE, OTHER, SELFPAY ==
[2023-01-07 11:29] VITALS: BP 144/90; PULSE 100; RESP 16; TEMP 36.3; O2SAT 100
--- NOTE | 2023-01-07 12:20 | ED.FEMALEGU ---
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 She denies any fever, chills, nausea, vomiting, patient blaming tight large ann-pad at that area at that time Related Data Home Medications Medication Instructions Recorded Confirmed aspirin 81 mg tablet,delayed 81 mg PO DAILY 07/19/19 01/03/23 release (Adult Low Dose Aspirin) triamterene 75 0.5 tablet PO DAILY 05/10/22 01/03/23 mg-hydrochlorothiazide 50 mg tablet halobetasol propionate 0.05 % 1 applic topical BID 07/18/22 01/03/23 topical cream Allergies Allergy/AdvReac Type Severity Reaction Status Date / Time codeine Allergy Unknown Rash Verified 01/07/23 12:13 indapamide Allergy Unknown Unknown Verified 01/07/23 12:13 Review of Systems Review of Systems: All systems reviewed & are unremarkable except as noted in HPI and below PMFSH Past Medical History Medical History Acute cystitis Bladder prolapse, female, acquired BMI 24.0-24.9, adult Face pain High blood pressure Left-sided chest wall pain Tendinopathy of left shoulder Family History Family History Mother Hypertension Father Cerebrovascular accident Family history of lung cancer Family history of coronary artery disease Hypertension Sibling No problems noted. 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 Gender identity (if verbalized by the patient): Female Spiritual care concerns: No Exam Narrative: General appearance: Well-developed, well-nourished Skin: Pelvic exam showed extensive blisters with erythematous base including the right labia, right perineum and right buttocks consistent with shingles Head: Normocephalic, nontraumatic Eyes: Clear conjun said so you are looking for something else not alcohol not regular alcoholctiva ENT: Oropharynx normal, ears normal, nose normal Neck: Supple, nontender Chest and respiratory: Airway patent, no respiratory distress, no accessory muscle use Heart: Regular rate/rhythm Abdomen: Soft, nontender, no organomegaly, quiet bowel sounds Vascular: Normal peripheral pulses, normal capillary refill. Musculoskeletal: Normal range of motion, nontender back Neurologic: Alert and oriented ?3, INTRAOPERATIVE NEURO TECH is normal as tested, no gross motor deficit Course Course Emergency Course: Stable Vital Signs Vital signs: Vital Signs Temperature 36.3 C L 01/07/23 11:29 Pulse Rate 100 01/07/23 11:29 Respiratory Rate 16 01/07/23 11:29 Blood Pressure 144/90 H 01/07/23 11:29 Pulse Oximetry 100 01/07/23 11:29 Oxygen Delivery Room Air 01/07/23 11:29 Temperature 36.3 C L 01/07/23 11:29 Pulse Rate 100 01/07/23 11:29 Respiratory Rate 16 01/07/23 11:29 Blood Pressure 144/90 H 01/07/23 11:29 Pulse Oximetry 100 01/07/23 11:29 Oxygen Delivery Room Air 01/07/23 11:29
== END 2023-01-07 12:55 | disposition home or self-care (01) ==
PROVIDERS: Emergency Provider Emergency Medicine; PCP Family Medicine
DX: B02.9 Zoster without complications (principal); Z79.82 Long term (current) use of aspirin; I10 Essential (primary) hypertension; Z77.22 Contact with and (suspected) exposure to environmental tobacco smoke (acute) (chronic)
CPT/HCPCS: 99283

== ENCOUNTER 2023-02-10 15:30 | Outpatient (RCR) | payer MEDICARE, OTHER, SELFPAY ==
[2023-02-03 14:30] VITALS: BP_SYST 155
--- NOTE | 2023-02-03 15:34 | PTOPEVAL1 ---
Assessment and note entered by Avis Subramanian, PT Evaluation Information Assessment Status Evaluation Diagnosis R shoulder pain Onset Sep 2022 Subjective Information woke up one morning and shoulder was out of socket and hurt; since Sep, hurts more; can use the arm and does not hurt anymore than if do not do anything; mopping and cleaning really hurts it; is able to do all of her yard and home tasks--shoulder hurts, but can do everything; Reported Pain Level Pain Score Self Report Additional Pain Score Comments has been staying at 6- 8/10 in the past week, hurts all the time; top and posterior shoulder joint, biceps, also hurts in neck and anterior trunk/chest increase pain with pulling arm backwards, cannot lie on R arm;mopping, cleaning home decrease pain- not lie on R side; is not taking any pain meds; is not using heat/ ice --instruct on PRN use; educated for support to arm with sitting; Assessment PT Clinical Summary Silvia has the diagnosis of R shoulder pain. She does not report any injury or trauma to her shoulder, but woke up one morning and it was out of the socket. She is active and does all of her yard and home tasks, lifting groceries and cutting branches outside. With the evaluation, pain increases with all motions of R shoulder-- flexion, abduction, IR and ER; she has painful arcs of motion and tenderness with palpation over anterior and lateral GH joint; she has rounded position of GH joint and forward rotation of R shoulder and trunk and decreased strength of R shoulder; cervical tightness of rotation R and L with pain. Skilled PT services are indicated for modalities to decrease pain, therapeutic exercises to stretch and strengthen cervical-thoracic/ scapular and shoulder complex, education for home exercises and posture correction. Plan of Care Interventions Electrical Stimulation,Hot Pack/Cold Pack,Manual Therapy,Neuro Re-education,Patient Education,Therapeutic Activities,Therapeutic Exercise,Ultrasound,Other Other Interventions [facility] Indicated Yes Treatment Frequency and 2x/wk for 4 weeks Duration T
--- NOTE | 2023-02-03 15:35 | PCPTNOTE ---
pt reports she will be out of town from February 14 to February 25;
--- NOTE | 2023-02-06 13:15 | PCPTNOTE ---
Pt cancelled due to illness.
--- NOTE | 2023-03-03 10:59 | PCPTNOTE ---
pt called and canceled today's reeval appt; stated she would call later to reschedule.
--- NOTE | 2023-04-07 09:23 | PTOPDC ---
Assessment and note entered by Avis Subramanian, PT Evaluation Information Assessment Status Discharge - Pt Not Present Diagnosis R shoulder pain Onset Sep 2022 Assessment PT Clinical Summary Silvia has received the PT evaluation on February 03 and one treatment session on . She did not return for additional therapy. The goals were not addressed. [facility] services. Plan of Care PT Services Indicated No
== END 2023-04-07 10:51 | disposition home or self-care (01) ==
LOC: ANHPT 15:30
PROVIDERS: PCP Family Medicine; Visit Provider Family Medicine
DX: M67.912 Unspecified disorder of synovium and tendon, left shoulder (principal)
CPT/HCPCS: 97110; 97140; 97161

== ENCOUNTER 2023-04-23 06:36 | Emergency (ER) | payer MEDICARE, OTHER, SELFPAY ==
--- NOTE | ~2023-04-23 | XR_ITS ---
EXAMINATION: XR chest 1V DATE: 04/23/2023 09:41 INDICATION: Weakness. TECHNIQUE: A single frontal view of the chest was obtained. COMPARISON: Chest single view 04/26/2022 FINDINGS: Calcified bilateral pulmonary nodules and calcified hilar and mediastinal lymph nodes are c onsistent with old granulomatous disease. No pleural effusion or pneumothorax. The heart size is norm al. IMPRESSION: 1. No acute cardiopulmonary disease. Reviewed, dictated and finalized at location A.
--- NOTE | ~2023-04-23 | XR_ITS ---
EXAMINATION: XR abdomen/kub 1V DATE: 04/23/2023 07:59 INDICATION: Constipation. TECHNIQUE: A supine view of the abdomen was obtained. COMPARISON: None. FINDINGS: There are no dilated loops of bowel. There is a moderate volume of stool in the colon. IMPRESSION: 1. Nonobstructive bowel gas pattern. Reviewed, dictated and finalized at location A.
--- NOTE | ~2023-04-23 | CT_ITS ---
EXAMINATION: CT abdomen pelvis w con DATE: 04/23/2023 09:29 INDICATION: Status post bladder suspension few days prior presenting with constipation, lower abdomin al pain and difficulty urinating TECHNIQUE: Computed tomography (CT) of the abdomen and pelvis was performed with 100 mL Omnipaque-350 intravenous contrast. Automated exposure control and iterative reconstruction technique were employe d. The dose-length product was 303.06 mGy-cm. COMPARISON: 03/07/2017 FINDINGS: Scattered calcified nodules at the bilateral lung bases along with calcified mediastinal and bilatera l hilar lymph nodes and multiple scattered splenic calcific lesions all consistent with old granuloma tous disease. Heart size is normal. Aortic valve calcification. No pericardial or pleural effusion. S mall sliding-type hiatal hernia. 6.6 cm cyst with single thin internal septation at the caudal aspect of the liver. Gallbladder, pancreas, bilateral adrenal glands and kidneys are normal. The uterus is not identified and has likely been surgically resected. There appears to be some edema around the urethra the cephalad portion which the bladder outlet is deviated towards the right in this likely re lated to the reported recent surgery. Bladder is otherwise unremarkable. There is mild to moderate co lonic diverticulosis with a sigmoid predominance and without adjacent inflammatory change to suggest diverticulitis. There is a short segment of mild wall thickening at the distalmost sigmoid colon whic h could be related to decompressed state or a minimal focal colitis which given the focality and loca tion is likely related to the reported recent rectal suspension. There is fluid in the proximal colon and moderate amount of stool in the more distal colon. No dilated small bowel to suggest obstruction . Normal appendix. Small amount of free fluid in the pelvis which could be either physiologic or reac tive related to the recent surgery. No abscess or free intraperitoneal gas. No pathologically enlarge d abdominal or pelvic lymphadenopathy. Mild thoracolumbar levoscoliosis with moderate to severe spond ylosis. 5 mm anterolisthesis L4 on L5 2 mm anterolisthesis L3 on L4. IMPRESSION: 1. . Peripheral edema and mild rightward deviation of the urethra at the bladder outlet, mild wall th ickening along a short segment of the distalmost sigmoid colon along with a minimal amount of ascites in the pelvis, all likely related to the reported recent bladder and rectal suspension. 2. Moderate amount of stool in the distal colon which could be related to constipation. No dilated jalil wel to suggest obstruction. 3. Sigmoid predominant diverticulosis. 4. Small sliding-type hiatal hernia. Reviewed, dictated and finalized at location A. IMPRESSION: 1. . Peripheral edema and mild rightward deviation of the urethra at the bladde r outlet, mild wall thickening along a short segment of the distalmost sigmoid colon along with a minimal amount of ascites in the pelvis, all likely related to the reported recent bladder and rectal suspension. 2. Moderate amount of stool in the distal colon which could be related to const ipation. No dilated bowel to suggest obstruction. 3. Sigmoid predominant diverticulosis. 4. Small sliding-type hiatal hernia.
[2023-04-23 06:41] VITALS: BP 150/64; PULSE 71; RESP 18; TEMP 36.5; O2SAT 97
--- NOTE | 2023-04-23 08:27 | ECG_ITS ---
Measurements Intervals [place] Rate: 73 P: 50 [place]: 175 QRS: -9 QRSD: 91 T: 15 QT: 390 QTc: 432 Interpretive Statements SINUS RHYTHM VOLTAGE CRITERIA FOR LVH BASELINE ARTIFACT- I, II, III, AVR, AVL, AVF, V1 BORDERLINE ECG COMPARED TO ECG 04/26/2022 20:18:27 NO SIGNIFICANT CHANGES Electronically Signed On 04-23-2023 9:58:53 CDT by Wyatt Shay D.O.
[2023-04-23] MEDS: SODIUM CHLORIDE 0.9% IV 1,000 ML 999 ML IV CONT (08:52)
[2023-04-23 09:05] LABS: Basophils Percent Auto 0.5 % (0.2-1.2); Eosinophils Absolute Auto 0.1 K/mm3 (0-0.3); Eosinophils Percent Auto 1.2 % (0-4.4); Hematocrit 41.9 % (37.0-47.0); Hemoglobin 13.8 g/dL (12.0-15.0); Immature Granulocyte Absolute 0.02 K/mm3 (0.00-0.031); Immature Granulocyte Percent A 0.3 % (0-0.5); Lymphocytes Absolute Auto 0.97 K/mm3 (0.9-3.2); Lymphocytes Percent Auto 14.8 % (18.3-44.2); Mean Corpuscular HGB Conc 32.9 g/dl (32-36); Mean Corpuscular Volume 94.2 fl (80-100); Mean Platelet Volume 8.6 fl (7.4-10.4); Monocytes Absolute Auto 0.7 K/mm3 (0.1-0.6); Monocytes Percent Auto 10.8 % (2.6-8.5); Neutrophils Absolute Auto 4.8 K/mm3 (1.3-6.7); Neutrophils Percent Auto 72.4 % (45.5-73.1); Platelet Count Result 183 k/mm3 (150-375); Red Blood Count 4.45 M/mm3 (4.2-5.4); Red Cell Distribution Width 12.6 % (11.5-14.5); White Blood Count 6.6 K/mm3 (4.5-10.0)
--- NOTE | 2023-04-23 09:05 | ED.ABDPAIN ---
HPI - Abdominal Pain General Chief Complaint: Abdominal Pain Stated Complaint: constipation Time Seen by Provider: 04/23/23 08:17 History of Present Illness HPI narrative: This is a 77-year-old female, past history of hypertension and recent rectal and bladder surgery at [facility] 6 days ago, who presents emergency department complaining of lower abdominal pain and constipation. The patient states despite taking laxatives and avoiding opioid pain medications she has not yet been able to have a bowel movement. She is passing gas. She complains of some nausea and dull pain rated 7/10. She also complains of dull epigastric pain rated 4/10, worsened with deep breathing. She denies bleeding, dysuria and has no other complaints at this time. Related Data Home Medications Medication Instructions Recorded Confirmed aspirin 81 mg tablet,delayed 81 mg PO DAILY 07/19/19 03/13/23 release (Adult Low Dose Aspirin) triamterene 75 0.5 tablet PO DAILY 05/10/22 03/13/23 mg-hydrochlorothiazide 50 mg tablet halobetasol propionate 0.05 % 1 applic topical BID 07/18/22 03/13/23 topical cream Allergies Allergy/AdvReac Type Severity Reaction Status Date / Time codeine Allergy Unknown Rash Verified 03/13/23 15:22 indapamide Allergy Unknown Unknown Verified 03/13/23 15:22 Review of Systems Review of Systems: CONSTITUTIONAL: Denies fever, chills, or sweats. CARDIOVASCULAR: Chest pain denies palpitations, or edema. RESPIRATORY: Denies cough or dyspnea. GASTROINTESTINAL: Abdominal pain, nausea denies vomiting, or diarrhea. GENITOURINARY: Denies dysuria or hematuria. SKIN: Denies rash or itching. MUSCULOSKELETAL: Denies back pain, joint pain, or myalgia. NEUROLOGIC: Denies headache, numbness, dizziness, or weakness. PSYCHIATRIC: Denies anxiety or depression. [facility] Past Medical History Medical History Acute cystitis Bladder prolapse, female, acquired BMI 24.0-24.9, adult Face pain High blood pressure Left-sided chest wall pain Tendinopathy of left shoulder Family History Family History Mother Hypertension Father Cerebrovascular accident Family history of lung cancer Family history of coronary artery disease Hypertension Sibling No problems noted. 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 Gender identity (if verbalized by the patient): Female Spiritual care concerns: No Exam Narrative: GENERAL: Well-developed, well-nourished, and in no acute distress. HEAD: Normocephalic, atraumatic. EYES: PERRLA and EOMI. ENT: Nares clear, no rhinorrhea or epistaxis. Mucous membranes moist. Oropharynx without tonsillar hypertrophy exudate or other lesions. CHEST: Clear to auscultation. No respiratory distress. No wheezes rales or rhonchi HEART: Regular rate and rhythm. No murmur heard. Normal peripheral pulses. ABDOMEN: Soft, tender palpation in the suprapubic region, without rebound and some active guarding, mildly distended, normal active bowel sounds. No CVA tenderness to palpation EXTREMITIES: Normal range of motion. No edema. SKIN: Warm, dry, no rash. NEURO: Alert and oriented x3. Moving all 4 limbs purposefully. PSYCH: Normal mood and affect. Course Course Emergency Course: 09:56 - CBC unremarkable. Chemistries within normal limits with a lactic acid of 0.9. Initial troponin negative. The patient's UA is consistent with UTI. CT abdomen pelvis shows changes consistent with rec
[2023-04-23 09:09] LABS: Appearance Urine Turbid (Clear); Bacteria Urine Rare /hpf; Bilirubin Urine Negative (Negative); Blood Urine Trace (Negative); Color Urine Yellow (Yellow); Glucose Urine UA Negative (Negative); Ketones Urine Negative (Negative); Leukocyte Esterase Ur 2+ LEU/UL (Negative); Nitrate Urine Negative (Negative); Non Pathogenic Casts 0-2; Protein Urine Negative (Negative); RBC Urine 0-2 /hpf (0-2); Specific Grav Ur 1.012 (1.001-1.035); Squamous Epithelial Cell Urine Occasional /hpf (Few); WBC Urine 21-50 /hpf
[2023-04-23 09:13] LABS: Add Urine Microscopic? YES
[2023-04-23 09:19] LABS: Prothrombin Time 14.2 Seconds (11.1-14.7)
[2023-04-23 09:21] LABS: Lactic Acid Reflex 0.9 mmol/L (0.7-2.0)
[2023-04-23 09:21] LABS: Alanine Aminotransferase 19 U/L (6-35); Albumin Level 4.2 g/dL (3.5-5.1); Alkaline Phosphatase 92 U/L (38-126); Anion Gap 6 mmol/L (8-16); Aspartate Amino Transferase 29 U/L (14-36); Bilirubin,Total 0.7 mg/dL (0.2-1.3); Blood Urea Nitrogen 13 mg/dL (7-17); Calcium 9.1 mg/dL (8.4-10.2); Carbon Dioxide 31 mmol/L (22-30); Chloride 104 mmol/L (98-107); Estimated CRCL calculation 51 ml/min; Estimated Glomerular Filt Rate > 60; Glucose 109 mg/dL (65-110); Potassium 3.9 mmol/L (3.4-5.0); Sodium 141 mmol/L (137-145)
[2023-04-23 09:25] LABS: Estimated CRCL calculation 44 ml/min; Estimated Glomerular Filt Rate > 60
[2023-04-23 09:32] LABS: Troponin I < 0.012 ng/mL (0.000-0.034)
[2023-04-23] MEDS: PEG (High)/E-LYTE SOLN 4,000 ML BTL 3000 ML PO (11:46)
[2023-04-23 14:00] VITALS: BP 155/77; PULSE 67; RESP 16; O2SAT 97
== END 2023-04-23 14:00 | disposition home or self-care (01) ==
PROVIDERS: Emergency Provider Preventive Medicine Aerospace Medicine; PCP Family Medicine
DX: N39.0 Urinary tract infection, site not specified (principal); R10.30 Lower abdominal pain, unspecified; K59.00 Constipation, unspecified; Z98.890 Other specified postprocedural states; I10 Essential (primary) hypertension; Z79.82 Long term (current) use of aspirin; R94.31 Abnormal electrocardiogram [ECG] [EKG]; K57.30 Diverticulosis of large intestine without perforation or abscess without bleeding; K44.9 Diaphragmatic hernia without obstruction or gangrene
CPT/HCPCS: 36415; 71045; 74018; 74177; 80053; 81001; 83605; 84484; 85025; 85610; 87077; 87086; 87186; 93005; 96360; 96361; 99284; A9270; J7030; Q9967

== ENCOUNTER 2023-05-02 14:09 | Outpatient (CLI) | payer MEDICARE, OTHER, SELFPAY ==
[2023-05-02 14:48] LABS: Appearance Urine Clear (Clear); Bacteria Urine 1+ /hpf; Bilirubin Urine Negative (Negative); Blood Urine Negative (Negative); Color Urine Yellow (Yellow); Glucose Urine UA Negative (Negative); Ketones Urine Trace mg/dL (Negative); Leukocyte Esterase Ur 2+ LEU/UL (Negative); Nitrate Urine Negative (Negative); Non Pathogenic Casts 0-2; Protein Urine Negative (Negative); RBC Urine 0-2 /hpf (0-2); Specific Grav Ur 1.015 (1.001-1.035); Squamous Epithelial Cell Urine None seen /hpf (Few); WBC Urine 21-50 /hpf; pH Urine 6.5 (5.0-9.0)
[2023-05-02 14:55] LABS: Add Urine Microscopic? YES
== END 2023-05-02 14:10 | disposition home or self-care (01) ==
PROVIDERS: PCP Family Medicine; Visit Provider Nurse Practitioner Family
DX: Z87.440 Personal history of urinary (tract) infections (principal)
CPT/HCPCS: 81001; 87077; 87086; 87186

== ENCOUNTER 2023-06-05 15:21 | Outpatient (CLI) | payer MEDICARE, OTHER, SELFPAY ==
--- NOTE | ~2023-06-05 | XR_ITS ---
EXAMINATION:XR cervical spine min 6V DATE: 06/05/2023 15:44 INDICATION: Neck pain TECHNIQUE: AP, lateral in neutral, flexion, extension, lateral swimmers and odontoid views of the cer vical spine are provided. COMPARISON: 08/14/2009 FINDINGS: Alignment is normal. There is no hypermobility with flexion or extension. The odontoid proc ess is intact. No fracture is identified. The vertebral body heights are maintained. There is mild lo ss of intervertebral disc space height at C4-5 and C5-C6. Prevertebral soft tissues are normal. There is multilevel severe facet and uncovertebral joint osteoarthritis. IMPRESSION: 1. Moderate to severe cervical spondylosis without acute findings or significant interval change. Reviewed, dictated and finalized at location F. IMPRESSION: 1. Moderate to severe cervical spondylosis without acute findings or significan t interval change.
== END 2023-06-05 15:22 | disposition home or self-care (01) ==
PROVIDERS: PCP Family Medicine; Visit Provider Family Medicine
DX: M47.892 Other spondylosis, cervical region (principal)
CPT/HCPCS: 72052

== ENCOUNTER 2023-09-19 11:38 | Outpatient (CLI) | payer MEDICARE, SELFPAY ==
[2023-09-19 12:11] LABS: Cholesterol 253 mg/dL (0-200); HDL Direct 59 mg/dL; Triglycerides 143 mg/dL (<150)
[2023-09-19 12:23] LABS: LDL Cholesterol Direct 147 mg/dL
== END 2023-09-19 11:39 | disposition home or self-care (01) ==
LOC: ANHLAB 11:39
PROVIDERS: PCP Family Medicine; Visit Provider Internal Medicine Cardiovascular Disease
DX: E78.2 Mixed hyperlipidemia (principal)
CPT/HCPCS: 36415; 80061

== ENCOUNTER 2023-11-12 12:10 | Outpatient (CLI) | payer MEDICARE, SELFPAY ==
--- NOTE | ~2023-11-12 | US_ITS ---
EXAMINATION:US venous doppler LE BI INDICATION:Left lower extremity pain and swelling TECHNIQUE: Multiple grayscale, color flow and Doppler images of the right and left lower extremity de ep venous systems were obtained and reviewed. COMPARISON:No prior studies for comparison. FINDINGS: The common femoral, superficial femoral and popliteal veins demonstrate normal respiratory variation, augmentation and compressibility. Color flow is also seen within the posterior tibial, pe roneal, greater saphenous and profunda veins. The right posterior tibial vein is not adequately visua lized for evaluation. IMPRESSION: 1: No lower extremity deep venous thrombosis. Reviewed, dictated and finalized at location B.
--- NOTE | ~2023-11-12 | XR_ITS ---
EXAM: [id number] DATE: 11/12/2023 12:45 HISTORY: M25.562 - Pain in left knee, SWELLING. NKI . COMPARISON: None available. FINDINGS: Decreased mineralization. No fracture or dislocation. No lytic or blastic lesion. Mild med ial and lateral joint space narrowing. Mild tricompartmental osteophytosis. Chondrocalcinosis. No ero marisela or periosteal change. Soft tissues within normal limits. IMPRESSION: Osteopenia. Mild tricompartmental left knee arthritis, with chondrocalcinosis. Reviewed, dictated and finalized at location K. IMPRESSION: Osteopenia. Mild tricompartmental left knee arthritis, with chondro calcinosis.
== END 2023-11-12 12:11 | disposition home or self-care (01) ==
LOC: ANHIMG 12:16
PROVIDERS: PCP Family Medicine; Visit Provider Nurse Practitioner Family
DX: M79.89 Other specified soft tissue disorders (principal); M85.862 Other specified disorders of bone density and structure, left lower leg; M17.12 Unilateral primary osteoarthritis, left knee
CPT/HCPCS: 73560; 93970

== ENCOUNTER 2024-06-18 11:02 | Outpatient (CLI) | payer MEDICARE, SELFPAY ==
[2024-06-18 11:35] LABS: Basophils Percent Auto 0.7 % (0.2-1.2); Eosinophils Absolute Auto 0.2 K/mm3 (0-0.3); Eosinophils Percent Auto 3.6 % (0-4.4); Hematocrit 40.7 % (37.0-47.0); Hemoglobin 13.9 g/dL (12.0-15.0); Immature Granulocyte Absolute 0.01 K/mm3 (0.00-0.031); Immature Granulocyte Percent A 0.2 % (0-0.5); Lymphocytes Absolute Auto 0.98 K/mm3 (0.9-3.2); Lymphocytes Percent Auto 23.4 % (18.3-44.2); Mean Corpuscular HGB Conc 34.2 g/dl (32-36); Mean Corpuscular Hemoglobin 31.5 pg (26-34); Mean Corpuscular Volume 92.3 fl (80-100); Mean Platelet Volume 8.8 fl (7.4-10.4); Monocytes Absolute Auto 0.4 K/mm3 (0.1-0.6); Neutrophils Absolute Auto 2.6 K/mm3 (1.3-6.7); Neutrophils Percent Auto 62.1 % (45.5-73.1); Platelet Count Result 163 k/mm3 (150-375); Red Blood Count 4.41 M/mm3 (4.2-5.4); Red Cell Distribution Width 12.5 % (11.5-14.5); White Blood Count 4.2 K/mm3 (4.5-10.0)
[2024-06-18 11:45] LABS: Alanine Aminotransferase 19 U/L (6-35); Albumin Level 4.5 g/dL (3.5-5.1); Alkaline Phosphatase 72 U/L (38-126); Anion Gap 9 mmol/L (4-12); Aspartate Amino Transferase 38 U/L (14-36); Bilirubin,Total 0.8 mg/dL (0.2-1.3); Blood Urea Nitrogen 15 mg/dL (7-17); Calcium 9.3 mg/dL (8.4-10.2); Carbon Dioxide 27 mmol/L (22-30); Chloride 103 mmol/L (98-107); Cholesterol 162 mg/dL (0-200); Estimated Glomerular Filt Rate > 60; Glucose 95 mg/dL (65-110); HDL Direct 61 mg/dL; Potassium 3.9 mmol/L (3.4-5.0); Sodium 139 mmol/L (137-145); Triglycerides 74 mg/dL (<150)
[2024-06-18 11:49] LABS: Rheumatoid Factor < 12.0 IU/ML (<12)
[2024-06-18 11:56] LABS: LDL Cholesterol Direct 74 mg/dL
[2024-06-21 16:14] LABS: ANA Cascade Screen NEGATIVE (NEGATIVE)
== END 2024-06-18 11:03 | disposition home or self-care (01) ==
PROVIDERS: PCP Family Medicine; Visit Provider Nurse Practitioner Adult Health
DX: L03.119 Cellulitis of unspecified part of limb (principal); L30.9 Dermatitis, unspecified; M25.50 Pain in unspecified joint; N39.0 Urinary tract infection, site not specified; R21 Rash and other nonspecific skin eruption; E78.2 Mixed hyperlipidemia; Z13.220 Encounter for screening for lipoid disorders; Z13.29 Encounter for screening for other suspected endocrine disorder
CPT/HCPCS: 36415; 80053; 80061; 84443; 85025; 86038; 86225; 86235; 86364; 86430

== ENCOUNTER 2024-06-23 14:36 | Outpatient (CLI) | payer MEDICARE, SELFPAY ==
--- NOTE | ~2024-06-23 | US_ITS ---
EXAM: RENAL ULTRASOUND HISTORY: N39.0 - Urinary tract infection, site not specified COMPARISON: Reference is made to a CT examination of the abdomen and pelvis dated 04/23/2023 FINDINGS: RIGHT KIDNEY: 9.4 x 4.1 x 4.2 cm. Mild right-sided hydronephrosis. The parenchyma of the right kidney demonstrates increased echogenicity and trace cortical thinning. Large rounded anechoic focus described within the right kidney is actually an intrahepatic cyst, as v isualized on prior cross-sectional imaging. LEFT KIDNEY: 10.2 x 4.2 x 3.8 cm No hydronephrosis or renal calculi. The parenchyma of the left kidney is increased in echogenicity and demonstrates trace cortical thinni ng. BLADDER: A left-sided ureteral jet is present. No right-sided ureteral jet is noted on the submitted images, despite prolonged interrogation. IMPRESSION: Mild right-sided hydroureteronephrosis. Despite prolonged interrogation, no right-sided ureteral jet is visualized. Additional findings suggesting medical renal disease. Reviewed, dictated and finalized at location A. LINES SUPERVISOR
== END 2024-06-23 14:37 | disposition home or self-care (01) ==
PROVIDERS: PCP Family Medicine; Visit Provider Nurse Practitioner Adult Health
DX: N39.0 Urinary tract infection, site not specified (principal)
CPT/HCPCS: 76775

== ENCOUNTER 2024-07-06 09:40 | Outpatient (CLI) | payer MEDICARE, SELFPAY ==
--- NOTE | ~2024-07-06 | XR_ITS ---
XR abdomen/kub 1V Ordering provider: Anna Nieves APRN History: . N13.30 - Unspecified hydronephrosis . Comparison: None. FINDINGS: BOWEL: Nonobstructive bowel gas pattern. ORGANOMEGALY: None. SIGNIFICANT PATHOLOGIC CALCIFICATIONS: None. OTHER: No free air is seen under the diaphragm. Degenerative changes of the spine. IMPRESSION: NO ACUTE ABDOMINAL FINDINGS. Reviewed, dictated and finalized at location A. RK OPERATOR
--- NOTE | ~2024-07-06 | CT_ITS ---
Non-contrast CT scan of the Abdomen and Pelvis Clinical indication: Hydronephrosis Technique: 2.5 mm axial scans were obtained through the abdomen and pelvis without intravenous or or al contrast. Dose reduction technique was used on this scan by utilizing automated exposure control a nd iterative reconstruction technique. The dose-length product (DLP) was 433.04 mGy-cm. COMPARISON: 04/23/2023 Findings: Images through the lung bases reveal calcified granulomas. There is no evidence of renal or ureteral calculi. The kidneys and the ureters are nondilated. Stable large inferior right hepatic lobe cyst. The spleen, pancreas, gallbladder, and adrenals appear normal. There is no aortic aneurysm. There is no evidence of bowel obstruction. Images through the pelvis were performed. There is no evidence of ascites or lymphadenopathy. Status post hysterectomy. No pelvic mass seen. Urinary bladder unremarkable. Impression: No hydronephrosis. No significant abnormality of the system identified. Reviewed, dictated and finalized at [facility]. GER INSTALLATION Impression: No hydronephrosis. No significant abnormality of the system identified.
== END 2024-07-06 09:41 | disposition home or self-care (01) ==
LOC: MICIMG 09:40
PROVIDERS: PCP Family Medicine; Visit Provider Nurse Practitioner Adult Health
DX: N13.30 Unspecified hydronephrosis (principal)
CPT/HCPCS: 74018; 74176

== ENCOUNTER 2024-10-14 13:48 | Outpatient (CLI) | payer MEDICARE, SELFPAY | END 2024-10-14 13:49 | disposition home or self-care (01) | LOC: ANHIMG 13:50 | PROVIDERS: PCP Family Medicine | DX: R06.2 Wheezing (principal) | CPT/HCPCS: 71046 ==

== ENCOUNTER 2024-10-15 10:54 | Outpatient (CLI) | payer MEDICARE, SELFPAY ==
[2024-10-15 11:44] LABS: Basophils Percent Auto 0.5 % (0.2-1.2); Eosinophils Absolute Auto 0.3 K/mm3 (0-0.3); Eosinophils Percent Auto 4.4 % (0-4.4); Hematocrit 40.9 % (37.0-47.0); Hemoglobin 13.4 g/dL (12.0-15.0); Immature Granulocyte Absolute 0.03 K/mm3 (0.00-0.031); Immature Granulocyte Percent A 0.5 % (0-0.5); Lymphocytes Absolute Auto 1.16 K/mm3 (0.9-3.2); Lymphocytes Percent Auto 18.2 % (18.3-44.2); Mean Corpuscular HGB Conc 32.8 g/dl (32-36); Mean Corpuscular Hemoglobin 30.9 pg (26-34); Mean Corpuscular Volume 94.5 fl (80-100); Mean Platelet Volume 8.9 fl (7.4-10.4); Monocytes Absolute Auto 0.7 K/mm3 (0.1-0.6); Neutrophils Absolute Auto 4.2 K/mm3 (1.3-6.7); Neutrophils Percent Auto 65.4 % (45.5-73.1); Platelet Count Result 245 k/mm3 (150-375); Red Blood Count 4.33 M/mm3 (4.2-5.4); Red Cell Distribution Width 12.1 % (11.5-14.5); White Blood Count 6.4 K/mm3 (4.5-10.0)
[2024-10-15 12:10] LABS: Alanine Aminotransferase 18 U/L (6-35); Alkaline Phosphatase 84 U/L (38-126); Anion Gap 7 mmol/L (4-12); Aspartate Amino Transferase 29 U/L (14-36); Bilirubin,Total 0.8 mg/dL (0.2-1.3); Blood Urea Nitrogen 17 mg/dL (7-17); Calcium 9.3 mg/dL (8.4-10.2); Carbon Dioxide 30 mmol/L (22-30); Chloride 104 mmol/L (98-107); Cholesterol 176 mg/dL (0-200); Creatine Kinase 67 U/L (30-135); Estimated Glomerular Filt Rate > 60; Glucose 91 mg/dL (65-110); HDL Direct 42 mg/dL; Potassium 4.5 mmol/L (3.4-5.0); Sodium 141 mmol/L (137-145); Triglycerides 102 mg/dL (<150)
[2024-10-15 12:22] LABS: Troponin I < 0.012 ng/mL (0.000-0.034)
[2024-10-15 12:23] LABS: LDL Cholesterol Direct 105 mg/dL
[2024-10-15 12:33] LABS: Vitamin D 25 Hydroxy 37.6 ng/mL
== END 2024-10-15 10:55 | disposition home or self-care (01) ==
LOC: ANHLAB 10:55
PROVIDERS: PCP Family Medicine
DX: E78.2 Mixed hyperlipidemia (principal); E55.9 Vitamin D deficiency, unspecified; I51.89 Other ill-defined heart diseases; R01.1 Cardiac murmur, unspecified; I67.9 Cerebrovascular disease, unspecified; Z13.1 Encounter for screening for diabetes mellitus; Z13.220 Encounter for screening for lipoid disorders; Z13.0 Encounter for screening for diseases of the blood and blood-forming organs and certain disorders involving the immune mechanism
CPT/HCPCS: 36415; 80053; 80061; 82306; 82550; 84484; 85025

== ENCOUNTER 2024-10-21 14:08 | Outpatient (CLI) | payer MEDICARE, SELFPAY ==
--- NOTE | ~2024-10-21 | MM_ITS ---
EXAMINATION: MM screening [facility] BI w jerome HISTORY: Screening TECHNIQUE: Craniocaudal and mediolateral oblique 3-D tomosynthesis images were obtained and synthetic 2-D images were generated. CAD analysis was submitted and interpreted. COMPARISON: 12/31/2022 and dating back to 05/02/2026 BREAST PARENCHYMAL COMPOSITION: There are scattered areas of fibroglandular density. FINDINGS: Punctate calcifications are detected within the upper inner right breast, dermal in origin, stable and benign in appearance. Stable parenchymal pattern without suspicious microcalcifications, architectural distortion, discrete masses or significant asymmetry. IMPRESSION: 1. No mammographic/tomographic evidence of malignancy. 2. Recommend routine screening mammography in one year. BI-RADS Category 2: Benign finding(s). Reviewed, dictated and finalized at location A. D SHIFT LIEUTENANT
--- OUTSIDE RECORDS SUMMARY | 2024-10-21 15:26 | XMS_ITS | Clinical Summary ---
Author Organization [facility] Address [address] [place] [address] Care Team Providers Care Information Assurance Analyst Name Role Phone Jeet Bautista MD Primary Care Provider [phone] Source Comments [facility],non-[facility] Affiliates and Associated Physician Practices is amultiple site organization consisting of ambulatory clinics and hospital sitesin [place], [place], [place]. This disclosure is being madepursuant to the Care Everywhere program and may not contain all information available regarding this patient. Last updated 18.[facility] [employer] Social History Tobacco Use Types Packs/Day Years Used Date Smoking Tobacco: Never Assessed Sex and Gender Information Value Date Recorded Sex Assigned at Not on file Gender Identity Not on file Sexual Orientation Not on file Plan of Treatment Health Maintenance Due Date Last Done Comments BONE DENSITY TESTING 1945 MEDICARE AWV 12 MONTHS 1945 DTAP/TDAP/TD VACCINES (1 - Tdap) 11/30/1962 PNEUMOCOCCAL VACCINE 50+ (1 of 1 - PCV) 11/30/1993 ZOSTER VACCINE (1 of 2) 11/30/1993 Respiratory Syncytial Virus (RSV) Vaccine Pt: or over 60 yrs (1 - 1-dose 75+ series) 11/30/2018 COVID-19 VACCINE ( - 2023-2 5 season) 2024 INFLUENZA VACCINE (#1) 2024 DEPRESSION SCREENING 08/18/2024 HEPATITIS B VACCINE Aged Out No longe r eligible based on patient's age to complete this topic HIB VACCINE Aged Out No longer eligi ble based on patient's age to complete this topic HPV VACCINE Aged Out No longer eligi ble based on patient's age to complete this topic MENINGOCOCCAL (Group B) VACCINE Aged Out No longer eligible based on patient's age to complete this topic MENINGOCOCCAL VACCINE Aged Out No mari kylee eligible based on patient's age to complete this topic Care Teams Information Assurance Analyst Relationship Specialty Start Date End Date Jeet Bautista MD [address] [place] [phone] PCP - General 12/23/12
--- OUTSIDE RECORDS SUMMARY | 2024-10-21 15:26 | XMS_ITS | Encounter Summary ---
Author Organization [facility] Address [address] [place] [address] Care Team Providers Care Civil Engineering Professor Name Role Phone Jeet Bautista MD Primary Care Provider [phone] Encounter Details Date Type Department Care Team (Late st Contact Info) Description 04/26/2021 Lab Requisition [facility] DermPath Lab [address] [place] [address] Miguel Keen MD [address] [place] [address] Social History Tobacco Use Types Packs/Day Years Used Date Smoking Tobacco: Never Assessed Sex and Gender Information Value Date Recorded Sex Assigned at Not on file Gender Identity Not on file Sexual Orientation Not on file documented as of this encounter Plan of Treatment Not on file documented as of this encounter Procedures Procedure Name Priority Date/Time Associated Diagnosis Comments DERMATOPATHOLOGY Routine 04/25/2021 12:0 0 AM CDT documented in this encounter Results * DERMATOPATHOLOGY (04/25/2021 12:00 AM CDT) Case Report Dermatopathology Report Case: [id number] Authorizing Provider: Miguel Keen MD Collected: 04/25/2021 12:00 AM Ordering Location: [facility] Lab Received: 04/26/2021 01:06 PM Pathologist: Michael Hung MD Specimen: Skin, right mid tibia 4:10 PM CDT DERMATOPATHOLOGY LABORATORY Final Diagnosis Specimen A. SKIN, right mid tibia: HYPERPLASTIC (HYPERTROPHIC) ACTINIC KERATOSIS WITH ASSOCIATE CHANGES OF PRURIGO NODULARIS (L57.0) 4:10 PM T DERMATOPATHOLOGY LABORATORY Clinical History R/O SCC. 4:10 PM CDT DERMATOPATHOLOGY LABORATORY Gross Description Specimen A: Received is one formalin filled container labeled with the patient's name and designated right mid tibia. The specimen consists of a shave biopsy measuring [id number]. Jar 0. 4:10 PM CDT DERMATOPATHOLOGY LABORATORY Microscopic Description Specimen A. SKIN, right mid tibia: There is hyperkeratosis alternating with parakeratosis. There is epidermal hyperplasia with disorderly maturation of keratinocytes with nuclear pleomorphism confined to the lower half of the epidermis. There is a dome-shaped portion of skin with psoriasiform epidermal hyperplasia, compact hyperkeratosis, and fibrosis of the papillary dermis associated with a superficial perivascular lymphohistiocytic infiltrate. 4:10 PM CDT DERMATOPATHOLOGY LABORATORY Disclaimer An external and internal positive and negative controls are appropriate for the histochemical, immunohistochemical and immunofluorescence stain(s) in this case (if any), except where stated explicitly. The performance characteristics of the stain(s) cited in this report were developed and its performance characteristic determined by the Dermatopathology Laboratory at [facility], directed by Dr. Nickolas Hung. These tests need not be, and therefore are not, approved by the [place] Food and Drug Administration. The tests are used for clinical purposes. Billing Codes Specimen Charges Stain Charges 48191 1 4:10 PM CDT DERMATOPATHOLOGY LABORATORY Embedded Images 4:10 PM CDT DERMATOPATHOLOGY LABORATORY Pathology/Cytolog y TISSUE SPECIMEN FROM SKIN / Unknown 04/25/2021 04/26/2021 1:06 PM CDT Miguel Keen MD LAB - PATHOLOGY/CYTO LOGY ORDERABLES DERMATOPATHOLOGY LABORATORY [facility] - Department of Dermatology [address], [address] [phone] documented in this encounter Visit Diagnoses Not on filedocumented in this encounter Care Teams Civil Engineering Professor Relationship Specialty Start Date End Date Jeet Bautista MD [address] [place] [address] PCP - General 12/23/12 documented as of this encounter
--- OUTSIDE RECORDS SUMMARY | 2024-10-21 15:26 | XMS_ITS | Encounter Summary ---
Author Organization [facility] Address [address] [place] [address] Care Team Providers Care Elementary Special Education Teacher Name Role Phone Jete Bautista MD Primary Care Provider [phone] Encounter Details Date Type Department Care Team (Late st Contact Info) Description 11/21/2023 Lab Requisition [facility] - DermPath Lab [address] [facility] [address] [place] [phone] Miguel Keen MD [address] [place] [address] Social History Tobacco Use Types Packs/Day Years Used Date Smoking Tobacco: Never Assessed Sex and Gender Information Value Date Recorded Sex Assigned at Not on file Gender Identity Not on file Sexual Orientation Not on file documented as of this encounter Plan of Treatment Not on file documented as of this encounter Procedures Procedure Name Priority Date/Time Associated Diagnosis Comments DERMATOPATHOLOGY Routine 11/19/2023 12:0 0 AM CDT documented in this encounter Results * DERMATOPATHOLOGY (11/19/2023 12:00 AM CDT) Case Report Dermatopathology Report Case: [id number] Authorizing Provider: Miguel Keen MD Collected: 11/19/2023 12:00 AM Ordering Location: [facility] - Received: 11/24/2023 07:03 AM DermPath Lab Pathologist: Carine Mosley MD Specimens: A) - Skin, right upper pretibia B) - Skin, left medial distal thigh 3:42 PM CDT DERMATOPATHOLOGY LABORATORY Final Diagnosis Specimen A. 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 SKIN, left medial distal thigh: HEMANGIOMA (D18.01) 4 3:42 PM T DERMATOPATHOLOGY LABORATORY Clinical History A: R/O BCC vs SCC B: R/O Neoplasm BCC Hemangioma 4 3:42 PM CDT DERMATOPATHOLOGY LABORATORY Gross Description Specimen A: Received is one formalin filled container labeled with the patient's name and designated right upper pretibia. The specimen consists of a shave biopsy measuring 10x7x2 mm. Jar 0. Specimen B: Received is one formalin filled container labeled with the patient's name and designated left medial distal thigh. The specimen consists of a shave biopsy measuring 10x9x3 mm. Jar 0. 3:42 PM CDT DERMATOPATHOLOGY LABORATORY Microscopic Description Specimen A. SKIN, right upper pretibia: There is hyperkeratosis alternating with parakeratosis. There is epidermal hyperplasia with disorderly maturation of keratinocytes with nuclear pleomorphism confined to the lower half of the epidermis. Focal nests are present in the dermis. Additional deeper sections were obtained and reviewed. Specimen B. SKIN, left medial distal thigh: In the dermis, there are dilated vascular spaces surrounded by widely spaced endothelial cells. 4 3:42 PM CDT DERMATOPATHOLOGY LABORATORY Disclaimer An external and internal positive and negative controls are appropriate for the histochemical, immunohistochemical and immunofluorescence stain(s) in this case (if any), except where stated explicitly. The performance characteristics of the stain(s) cited in this report were developed and its performance characteristic determined by the Dermatopathology Laboratory at [facility], directed by Dr. Nickolas Hung. These tests need not be, and therefore are not, approved by the [place] Food and Drug Administration. The tests are used for clinical purposes. Billing Codes Specimen Charges Stain Charges 46861 00008 1 1 4 3:42 PM CDT DERMATOPATHOLOGY LABORATORY Embedded Images 4 3:42 PM CDT DERMATOPATHOLOGY LABORATORY Pathology/Cytology TISSUE SPECIMEN FROM SKIN / Unknown 11/19/2023 11/24/2023 7:03 AM CDT Miscellaneous samples (specimen) TISSUE SPECIMEN FROM SKIN / Unknown 11/19/2023 11/24/2023 7:03 AM CDT Miguel Keen MD LAB - PATHOLOGY/CYTO LOGY ORDERABLES DERMATOPATHOLOGY LABORATORY [facility] - Department of Dermatology [facility] [address] [place] [address], [address] [phone] documented in this encounter Visit Diagnoses Not on filedocumented in this encounter Care Teams Elementary Special Education Teacher Relationship Specialty Start Date End Date Jeet Bautista MD [address] [place] [address] PCP - General 12/23/12 documented as of this encounter
--- OUTSIDE RECORDS SUMMARY | 2024-10-21 15:26 | XMS_ITS | Encounter Summary ---
Author Organization [facility] Address [address] [place] [address] Care Team Providers Care Clam Treader Name Role Phone Jeet Bautista MD Primary Care Provider Encounter Details Date Type Department Care Team (Late st Contact Info) Description 09/19/2020 Lab Requisition [facility] DermPath Lab [address] [facility] [place] [address] Miguel Keen MD [address] [place] [address] Social History Tobacco Use Types Packs/Day Years Used Date Smoking Tobacco: Never Assessed Sex and Gender Information Value Date Recorded Sex Assigned at Not on file Gender Identity Not on file Sexual Orientation Not on file documented as of this encounter Plan of Treatment Not on file documented as of this encounter Procedures Procedure Name Priority Date/Time Associated Diagnosis Comments DERMATOPATHOLOGY Routine 09/18/2020 12:0 0 AM RECREATION ATTENDANT SUPERVISOR documented in this encounter Results * DERMATOPATHOLOGY (09/18/2020 12:00 AM RECREATION ATTENDANT SUPERVISOR) Case Report Dermatopathology Report Case: [id number] Authorizing Provider: Miguel Keen MD Collected: 09/18/2020 12:00 AM Ordering Location: [facility] DermPath Lab Received: 09/19/2020 12:20 PM Pathologist: Sushma Avelar MD Specimen: Skin, left lower lateral leg 3:24 PM RECREATION ATTENDANT SUPERVISOR DERMATOPATHOLOGY LABORATORY Final Diagnosis Specimen A. SKIN, left lower lateral leg: SUPERFICIAL (FOCALLY INVASIVE) SQUAMOUS CELL CARCINOMA ARISING IN AN ACTINIC KERATOSIS (C44.729) STASIS CHANGES (L30.8) 3:24 PM RECREATION ATTENDANT SUPERVISOR DERMATOPATHOLOGY LABORATORY Clinical History R/O SCC,ISK,LSC 3:24 PM [facility] DERMATOPATHOLOGY LABORATORY Gross Description Specimen A: Received is one formalin filled container labeled with the patient's name and designated left lower lateral leg. The specimen consists of a shave biopsy measuring 9x7x1 mm. Jar 0. 3:24 PM [facility] DERMATOPATHOLOGY LABORATORY Microscopic Description Specimen A. SKIN, left lower lateral leg: Sections reveal parakeratosis, acanthosis and keratinocyte dysmaturation which is most prominent in the lower epidermis. Focal nests are present in the dermis. There is focal spongiosis. The dermis shows a sparse, perivascular lymphocytic infiltrate surrounding dilated, thick-walled vessels, which are increased in number. 3:24 PM [facility] DERMATOPATHOLOGY LABORATORY Disclaimer An external and internal positive and negative controls are appropriate for the histochemical, immunohistochemical and immunofluorescence stain(s) in this case (if any), except where stated explicitly. The performance characteristics of the stain(s) cited in this report were developed and its performance characteristic determined by the Dermatopathology Laboratory at [facility], directed by Dr. Nickolas Hung. These tests need not be, and therefore are not, approved by the [place] Food and Drug Administration. The tests are used for clinical purposes. Billing Codes Specimen Charges Stain Charges 11542 1 3:24 PM RECREATION ATTENDANT SUPERVISOR DERMATOPATHOLOGY LABORATORY Embedded Images 3:24 PM RECREATION ATTENDANT SUPERVISOR DERMATOPATHOLOGY LABORATORY Pathology/Cytolog y TISSUE SPECIMEN FROM SKIN / Unknown 09/18/2020 09/19/2020 12:20 PM RECREATION ATTENDANT SUPERVISOR Miguel Keen MD LAB - PATHOLOGY/CYTO LOGY ORDERABLES DERMATOPATHOLOGY LABORATORY [facility] - Department of Dermatology [address] [phone] documented in this encounter Visit Diagnoses Not on filedocumented in this encounter Care Teams Clam Treader Relationship Specialty Start Date End Date Jeet Bautista MD [address] [place] [address] PCP - General 12/23/12 documented as of this encounter
--- OUTSIDE RECORDS SUMMARY | 2024-10-21 15:26 | XMS_ITS | Encounter Summary ---
Author Organization [facility] Health Address [address] [facility] [place] [address] Care Team Providers Care Boarding Kennel Or Cattery Operator Name Role Phone Jeet Bautista MD Primary Care Provider [phone] Encounter Details Date Type Department Care Team (Late st Contact Info) Description 12/15/2019 Lab Requisition [facility] DermPath Lab [address] [facility] [place] [address] Ed Medina MD [address] [place] [address] Social History Tobacco Use Types Packs/Day Years Used Date Smoking Tobacco: Never Assessed Sex and Gender Information Value Date Recorded Sex Assigned at Not on file Gender Identity Not on file Sexual Orientation Not on file documented as of this encounter Plan of Treatment Not on file documented as of this encounter Procedures Procedure Name Priority Date/Time Associated Diagnosis Comments DERMATOPATHOLOGY Routine 12/15/2019 12:0 0 AM CDT documented in this encounter Results * DERMATOPATHOLOGY (12/15/2019 12:00 AM CDT) Case Report Dermatopathology Report Case: [id number] Authorizing Provider: Ed Medina MD Collected: 12/15/2019 12:00 AM Ordering Location: [facility] DermPath Lab Received: 12/15/2019 02:39 PM Pathologist: Michael Hung MD Specimens: A) - Skin, left upper spence B) - Skin, left middle finger 0 3:19 PM CDT DERMATOPATHOLOGY LABORATORY Final Diagnosis Specimen A. SKIN, left upper spence: SQUAMOUS CELL CARCINOMA, WELL DIFFERENTIATED (C44.729) Specimen B. 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 Path# [id number] B: SCCA. Path# [id number] 0 3:19 PM CDT DERMATOPATHOLOGY LABORATORY Gross Description Specimen A: Received is one formalin filled container labeled with the patient's name and designated left upper spence. The specimen consists of a shave biopsy measuring 10x9x2 mm. Jar 0. Specimen B: Received is one formalin filled container labeled with the patient's name and designated left middle finger. The specimen consists of a shave biopsy measuring 5x5x1 mm. Jar 0. 0 3:19 PM CDT DERMATOPATHOLOGY LABORATORY Microscopic Description Specimen A. SKIN, left upper spence: Arising in the epidermis and extending into the dermis there are irregularly shaped aggregates of keratinocytes showing evidence of premature cornification. Specimen B. SKIN, left middle finger: The epidermis shows parakeratosis, full thickness disorderly maturation of keratinocytes, mitoses at different levels, and dyskeratotic cells. 0 3:19 PM CDT DERMATOPATHOLOGY LABORATORY Disclaimer An external and internal positive and negative controls are appropriate for the histochemical, immunohistochemical and immunofluorescence stain(s) in this case (if any), except where stated explicitly. The performance characteristics of the stain(s) cited in this report were developed and its performance characteristic determined by the Dermatopathology Laboratory at [facility], directed by Dr. Nickolas Hung. These tests need not be, and therefore are not, approved by the [place] Food and Drug Administration. The tests are used for clinical purposes. Billing Codes Specimen Charges Stain Charges 44199 82716 1 1 0 3:19 PM CDT DERMATOPATHOLOGY LABORATORY Embedded Images 0 3:19 PM CDT DERMATOPATHOLOGY LABORATORY Pathology/Cytology TISSUE SPECIMEN FROM SKIN / Unknown 12/15/2019 12/15/2019 2:39 PM CDT Miscellaneous samples (specimen) TISSUE SPECIMEN FROM SKIN / Unknown 12/15/2019 12/15/2019 2:39 PM CDT Ed Medina MD LAB - PATHOLOGY/CYTO LOGY ORDERABLES DERMATOPATHOLOGY LABORATORY [facility] - Department of Dermatology [employer], 5th Floor Lab [address] [phone] documented in this encounter Visit Diagnoses Not on filedocumented in this encounter Care Teams Boarding Kennel Or Cattery Operator Relationship Specialty Start Date End Date Jeet Bautista MD [address] [place] [address] PCP - General 12/23/12 documented as of this encounter
--- OUTSIDE RECORDS SUMMARY | 2024-10-21 15:26 | XMS_ITS | Referral Summary ---
Author Organization [facility] Address [address] [place] [address] Care Team Providers Care Brush Operator Name Role Phone Jeet Bautista MD Primary Care Provider [phone] Source Comments [facility] Affiliates and Associated Physician Practices is amultiple site organization consisting of ambulatory clinics and hospital sitesin [place], [place], [place] and [place]. This disclosure is being madepursuant to the Care Everywhere program and may not contain all information available regarding this patient. Last updated 18.[facility] Social History Tobacco Use Types Packs/Day Years Used Date Smoking Tobacco: Never Assessed Sex and Gender Information Value Date Recorded Sex Assigned at Not on file Gender Identity Not on file Sexual Orientation Not on file Plan of Treatment Not on file Care Teams Brush Operator Relationship Specialty Start Date End Date Jeet Bautista MD [address] [place] [address] PCP - General 12/23/12
--- OUTSIDE RECORDS SUMMARY | 2024-10-21 15:26 | XMS_ITS | Encounter Summary ---
Author Organization [facility] Health Address [address] [facility] [place] [address] Care Team Providers Care Genetics Physician Name Role Phone Jeet Bautista MD Primary Care Provider [phone] Encounter Details Date Type Department Care Team (Late st Contact Info) Description 09/12/2022 Lab Requisition [facility] DermPath Lab [address] [facility] [place] [address] Miguel Keen MD [address] [place] [address] Social History Tobacco Use Types Packs/Day Years Used Date Smoking Tobacco: Never Assessed Sex and Gender Information Value Date Recorded Sex Assigned at Not on file Gender Identity Not on file Sexual Orientation Not on file documented as of this encounter Plan of Treatment Not on file documented as of this encounter Procedures Procedure Name Priority Date/Time Associated Diagnosis Comments DERMATOPATHOLOGY Routine 09/11/2022 12:0 0 AM [facility] documented in this encounter Results * DERMATOPATHOLOGY (09/11/2022 12:00 AM [facility]) Case Report Dermatopathology Report Case: [id number] Authorizing Provider: Miguel Keen MD Collected: 09/11/2022 12:00 AM Ordering Location: [facility] DermPath Lab Received: 09/12/2022 01:22 PM Pathologist: Carine Mosley MD Specimens: A) - Skin, left lower vermilion lip B) - Skin, left post shoulder C) - Skin, left ext prox forearm D) - Skin, right lat distal upper arm 3:18 PM [facility] DERMATOPATHOLOGY LABORATORY Final Diagnosis Specimen A. 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 SKIN, left post shoulder: HYPERPLASTIC (HYPERTROPHIC) ACTINIC KERATOSIS (L57.0) Specimen C. 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 SKIN, right lat distal upper arm: SQUAMOUS CELL CARCINOMA, WELL DIFFERENTIATED (C44.622) 3 3:18 PM [facility] DERMATOPATHOLOGY LABORATORY Clinical History A-D: R/O SCC 3 3:18 PM [facility] DERMATOPATHOLOGY LABORATORY Gross Description Specimen A: Received is one formalin filled container labeled with the patient's name and designated left lower vermilion lip. The specimen consists of a shave biopsy measuring 6x4x1 mm. Jar 0. Specimen B: Received is one formalin filled container labeled with the patient's name and designated left post shoulder. The specimen consists of a shave biopsy measuring 9x8x1 mm. Jar 0. Specimen C: Received is one formalin filled container labeled with the patient's name and designated left ext prox forearm. The specimen consists of a shave biopsy measuring 8x7x2 mm. Jar 0. Specimen D: Received is one formalin filled container labeled with the patient's name and designated right lat distal upper arm. The specimen consists of a shave biopsy measuring 19g79z6 mm. Jar 0. 3 3:18 PM [facility] DERMATOPATHOLOGY LABORATORY Microscopic Description Specimen A. SKIN, left lower vermilion lip: The squamous epithelium has focal parakeratosis, nuclear pleomorphism and slightly disordered maturation. There is solar elastosis of the submucosal connective tissue. Ki67 immunostain is positive in scattered lower level intraepithelial keratinocytes. Additional deeper sections were obtained and reviewed. Specimen B. SKIN, left post shoulder: There is hyperkeratosis alternating with parakeratosis. There is epidermal hyperplasia with disorderly maturation of keratinocytes with nuclear pleomorphism confined to the lower half of the epidermis. Specimen C. SKIN, left ext prox forearm: The epidermis shows parakeratosis, full thickness disorderly maturation of keratinocytes, and dyskeratotic cells. Specimen D. SKIN, right lat distal upper arm: Arising in the epidermis and extending into the dermis there are irregularly shaped aggregates of keratinocytes showing evidence of premature cornification. 3 3:18 PM [facility] DERMATOPATHOLOGY LABORATORY Disclaimer An external and internal positive and negative controls are appropriate for the histochemical, immunohistochemical and immunofluorescence stain(s) in this case (if any), except where stated explicitly. The performance characteristics of the stain(s) cited in this report were developed and its performance characteristic determined by the Dermatopathology Laboratory at [facility], directed by Dr. Nickolas Hung. These tests need not be, and therefore are not, approved by the [place] Food and Drug Administration. The tests are used for clinical purposes. Billing Codes Specimen Charges Stain Charges 78556 77297 96829 09705 1 1 1 1 38041 1 3 3:18 PM [facility] DERMATOPATHOLOGY LABORATORY Embedded Images 3 3:18 PM [facility] DERMATOPATHOLOGY LABORATORY Pathology/Cytology TISSUE SPECIMEN FROM SKIN / Unknown 09/11/2022 09/12/2022 1:22 PM [facility] Miscellaneous samples (specimen) TISSUE SPECIMEN FROM SKIN / Unknown 09/11/2022 09/12/2022 1:22 PM [facility] Miscellaneous samples (specimen) TISSUE SPECIMEN FROM SKIN / Unknown 09/11/2022 09/12/2022 1:22 PM [facility] Miscellaneous samples (specimen) TISSUE SPECIMEN FROM SKIN / Unknown 09/11/2022 09/12/2022 1:22 PM [facility] Miguel Keen MD LAB - PATHOLOGY/CYTO LOGY ORDERABLES DERMATOPATHOLOGY LABORATORY [facility] - Department of Dermatology [facility] [address] [place] [address], [address] [phone] documented in this encounter Visit Diagnoses Not on filedocumented in this encounter Care Teams Genetics Physician Relationship Specialty Start Date End Date Jeet Bautista MD [address] [place] [address] PCP - General 12/23/12 documented as of this encounter
--- OUTSIDE RECORDS SUMMARY | 2024-10-21 15:26 | XMS_ITS | Encounter Summary ---
Author Organization [facility] Health Address [address] [facility] [place] [address] Care Team Providers Care Director Digital Catalogue Name Role Phone Jeet Bautista MD Primary Care Provider [phone] Encounter Details Date Type Department Care Team (Late st Contact Info) Description 01/04/2021 Lab Requisition [facility] DermPath Lab [address] [facility] [place] [address] Miguel Keen MD [address] [place] [address] Social History Tobacco Use Types Packs/Day Years Used Date Smoking Tobacco: Never Assessed Sex and Gender Information Value Date Recorded Sex Assigned at Not on file Gender Identity Not on file Sexual Orientation Not on file documented as of this encounter Plan of Treatment Not on file documented as of this encounter Procedures Procedure Name Priority Date/Time Associated Diagnosis Comments DERMATOPATHOLOGY Routine 01/03/2021 12:0 0 AM CDT documented in this encounter Results * DERMATOPATHOLOGY (01/03/2021 12:00 AM CDT) Case Report Dermatopathology Report Case: [id number] Authorizing Provider: Miguel Keen MD Collected: 01/03/2021 12:00 AM Ordering Location: [facility] DermPath Lab Received: 01/04/2021 02:09 PM Pathologist: Michael Hung MD Specimens: A) - Skin, right mid ant thigh B) - Skin, above right knee C) - Skin, right mid pretibia D) - Skin, right prox ext FA E) - Skin, right lat sup thigh 11:[address] [facility] DERMATOPATHOLOGY LABORATORY Final Diagnosis Specimen A. SKIN, right mid ant thigh: SUPERFICIAL (FOCALLY INVASIVE) SQUAMOUS CELL CARCINOMA ARISING IN AN ACTINIC KERATOSIS (C44.722) Specimen B. SKIN, above right knee: HYPERPLASTIC (HYPERTROPHIC) ACTINIC KERATOSIS (L57.0) Specimen C. SKIN, right mid pretibia: BASAL CELL CARCINOMA, NODULAR TYPE (C44.712) Specimen D. SKIN, right prox ext FA: BENIGN VERRUCOUS KERATOSIS, INFLAMED (L82.1) Specimen E. SKIN, right lat sup thigh: SQUAMOUS CELL CARCINOMA IN SITU (D04.71) (see microscopic description and comment) 11:[address] [facility] DERMATOPATHOLOGY LABORATORY Clinical History A-E: R/O KA 11:[address] [facility] DERMATOPATHOLOGY LABORATORY Gross Description Specimen A: Received is one formalin filled container labeled with the patient's name and designated right mid ant thigh. The specimen consists of a shave biopsy measuring 12x9x3 mm. Jar 0. Specimen B: Received is one formalin filled container labeled with the patient's name and designated above right knee. The specimen consists of a shave biopsy measuring 10x8x3 mm. Jar 0. Specimen C: Received is one formalin filled container labeled with the patient's name and designated right mid pretibia. The specimen consists of a shave biopsy measuring 52n22h9 mm. Jar 0. Specimen D: Received is one formalin filled container labeled with the patient's name and designated right prox ext FA. The specimen consists of a shave biopsy measuring 11x8x2 mm. Jar 0. Specimen E: Received is one formalin filled container labeled with the patient's name and designated right lat sup thigh. The specimen consists of a shave biopsy measuring 18q42m5 mm. Jar 0. 11:[address] [facility] DERMATOPATHOLOGY LABORATORY Microscopic Description Specimen A. SKIN, right mid ant thigh: Sections reveal parakeratosis, acanthosis and keratinocyte dysmaturation which is most prominent in the lower epidermis. Focal nests are present in the dermis. Specimen B. SKIN, above right knee: There is hyperkeratosis alternating with parakeratosis. There is epidermal hyperplasia with disorderly maturation of keratinocytes with nuclear pleomorphism confined to the lower half of the epidermis. Specimen C. SKIN, right mid pretibia: Within the dermis there are aggregates of basaloid cells with a high nuclear to cytoplasmic ratio and peripheral palisading. Specimen D. SKIN, right prox ext FA: Sections show hyperkeratosis, papillomatosis, hypergranulosis, and acanthosis. Inflammatory cells are present within the dermis. These histological findings can be seen in a verruca vulgaris or a seborrheic keratosis. Specimen E. SKIN, right lat sup thigh: There is parakeratosis overlying disorderly maturation of keratinocytes with nuclear pleomorphism throughout the full thickness of the epidermis. In addition, there is hypergranulosis with vacuolated granular layer cells. COMMENT: In this location, this may represent bowenoid papulosis. 11:49 AM CDT DERMATOPATHOLOGY LABORATORY Disclaimer An external and internal positive and negative controls are appropriate for the histochemical, immunohistochemical and immunofluorescence stain(s) in this case (if any), except where stated explicitly. The performance characteristics of the stain(s) cited in this report were developed and its performance characteristic determined by the Dermatopathology Laboratory at [facility], directed by Dr. Nickolas Hung. These tests need not be, and therefore are not, approved by the [place] Food and Drug Administration. The tests are used for clinical purposes. Billing Codes Specimen Charges Stain Charges 51814 19377 53222 18216 76438 1 1 1 1 1 1 11:49 AM CDT DERMATOPATHOLOGY LABORATORY Embedded Images 11:49 AM CDT DERMATOPATHOLOGY LABORATORY Pathology/Cytology TISSUE SPECIMEN FROM SKIN / Unknown 01/03/2021 01/04/2021 2:09 PM CDT Miscellaneous samples (specimen) TISSUE SPECIMEN FROM SKIN / Unknown 01/03/2021 01/04/2021 2:09 PM CDT Miscellaneous samples (specimen) TISSUE SPECIMEN FROM SKIN / Unknown 01/03/2021 01/04/2021 2:09 PM CDT Miscellaneous samples (specimen) TISSUE SPECIMEN FROM SKIN / Unknown 01/03/2021 01/04/2021 2:09 PM CDT Miscellaneous samples (specimen) TISSUE SPECIMEN FROM SKIN / Unknown 01/03/2021 01/04/2021 2:09 PM CDT Miguel Keen MD LAB - PATHOLOGY/CYTO LOGY ORDERABLES DERMATOPATHOLOGY LABORATORY [facility] - Department of Dermatology [facility] Medicine [address] [place] [address], [address] [phone] documented in this encounter Visit Diagnoses Not on filedocumented in this encounter Care Teams Director Digital Catalogue Relationship Specialty Start Date End Date Jeet Bautista MD [address] [place] [address] PCP - General 12/23/12 documented as of this encounter
--- OUTSIDE RECORDS SUMMARY | 2024-10-21 15:26 | XMS_ITS | Encounter Summary ---
Author Organization [facility] Health Address [address] [facility] [place] [address] Care Team Providers Care Java Designer Name Role Phone Jeet Bautista MD Primary Care Provider [phone] Encounter Details Date Type Department Care Team (Late st Contact Info) Description 04/08/2019 Lab Requisition [facility] DermPath Lab [address] [facility] [place] [address] Miguel Keen MD [address] [place] [address] Social History Tobacco Use Types Packs/Day Years Used Date Smoking Tobacco: Never Assessed Sex and Gender Information Value Date Recorded Sex Assigned at Not on file Gender Identity Not on file Sexual Orientation Not on file documented as of this encounter Plan of Treatment Not on file documented as of this encounter Procedures Procedure Name Priority Date/Time Associated Diagnosis Comments DERMATOPATHOLOGY Routine 04/07/2019 12:0 0 AM CDT documented in this encounter Results * DERMATOPATHOLOGY (04/07/2019 12:00 AM CDT) Case Report Dermatopathology Report Case: [id number] Authorizing Provider: Miguel Keen MD Collected: 04/07/2019 12:00 AM Ordering Location: [facility] DermPath Lab Received: 04/08/2019 01:29 PM Pathologist: Michael Hung MD Specimens: A) - Skin, left zygoma lateral to canthus B) - Skin, left lower thoracic paraspinal back C) - Skin, right verm lip border 9 1:32 PM CDT DERMATOPATHOLOGY LABORATORY Final Diagnosis Specimen A. SKIN, left zygoma lateral to canthus: BENIGN VERRUCOUS KERATOSIS (L82.1) Specimen B. SKIN, left lower thoracic paraspinal back: HYPERPLASTIC (HYPERTROPHIC) ACTINIC KERATOSIS WITH ASSOCIATED HUMAN PAPILLOMA VIRUS CHANGES (L57.0) Specimen C. SKIN, right verm lip border: ACTINIC KERATOSIS, ACANTHOLYTIC TYPE (L57.0) (see microscopic description) 1:32 PM [facility] DERMATOPATHOLOGY LABORATORY Clinical History A: R/O SK B-C: R/O SCC, BCC, HAK 1:32 PM T DERMATOPATHOLOGY LABORATORY Gross Description Specimen A: Received is one formalin filled container labeled with the patient's name and designated left zygoma lateral to canthus. The specimen consists of a shave biopsy measuring 5x4x1,5x4x1, and 6x4x1 mm. Jar 0. Specimen B: Received is one formalin filled container labeled with the patient's name and designated left lower thoracic paraspinal back. The specimen consists of a shave biopsy measuring 6x6x1 mm. Jar 0. Specimen C: Received is one formalin filled container labeled with the patient's name and designated right verm lip border. The specimen consists of a shave biopsy measuring 4x3x1 mm. Jar 0. 1:32 PM [facility] DERMATOPATHOLOGY LABORATORY Microscopic Description Specimen A. SKIN, left zygoma lateral to canthus: Sections show hyperkeratosis, papillomatosis, hypergranulosis, and acanthosis. These histological findings can be seen in a verruca vulgaris or a seborrheic keratosis. Specimen B. SKIN, left lower thoracic paraspinal back: There is hyperkeratosis alternating with parakeratosis. There is epidermal hyperplasia with disorderly maturation of keratinocytes with nuclear pleomorphism confined to the lower half of the epidermis. Specimen C. SKIN, right verm lip border: There is focal parakeratosis. The lower half of the epidermis shows disorderly maturation of keratinocytes with nuclear pleomorphism. Focally there is a suprabasilar cleft with acantholytic cells. Additional deeper sections were obtained and reviewed. 1:32 PM [facility] DERMATOPATHOLOGY LABORATORY Disclaimer An external and internal positive and negative controls are appropriate for the histochemical, immunohistochemical and immunofluorescence stain(s) in this case (if any), except where stated explicitly. The performance characteristics of the stain(s) cited in this report were developed and its performance characteristic determined by the Dermatopathology Laboratory at [facility], directed by Dr. Nickolas Hung. These tests need not be, and therefore are not, approved by the [place] Food and Drug Administration. The tests are used for clinical purposes. Billing Codes Specimen Charges Stain Charges 40857 82661 66250 1 1 1 9 1:32 PM CDT DERMATOPATHOLOGY LABORATORY Embedded Images 9 1:32 PM CDT DERMATOPATHOLOGY LABORATORY Pathology/Cytology TISSUE SPECIMEN FROM SKIN / Unknown 04/07/2019 04/08/2019 1:29 PM CDT Miscellaneous samples (specimen) TISSUE SPECIMEN FROM SKIN / Unknown 04/07/2019 04/08/2019 1:29 PM CDT Miscellaneous samples (specimen) TISSUE SPECIMEN FROM SKIN / Unknown 04/07/2019 04/08/2019 1:29 PM CDT Miguel Keen MD LAB - PATHOLOGY/CYTO LOGY ORDERABLES DERMATOPATHOLOGY LABORATORY [facility] - Department of Dermatology [address] [facility] [address] [phone] documented in this encounter Visit Diagnoses Not on filedocumented in this encounter Care Teams Java Designer Relationship Specialty Start Date End Date Jeet Bautista MD [address] [place] [phone] PCP - General 12/23/12 documented as of this encounter
--- OUTSIDE RECORDS SUMMARY | 2024-10-21 15:26 | XMS_ITS | Encounter Summary ---
Author Organization [facility] Health Address [address] [facility] [facility] [place] [address] Care Team Providers Care Child Care Lead Teacher Name Role Phone Jeet Bautista MD Primary Care Provider [phone] Encounter Details Date Type Department Care Team (Late st Contact Info) Description 07/02/2024 Lab Requisition [facility] - DermPath Lab [address] [place] [id number] Miguel Keen MD [address] [place] [id number] Social History Tobacco Use Types Packs/Day Years Used Date Smoking Tobacco: Never Assessed Sex and Gender Information Value Date Recorded Sex Assigned at Not on file Gender Identity Not on file Sexual Orientation Not on file documented as of this encounter Plan of Treatment Not on file documented as of this encounter Procedures Procedure Name Priority Date/Time Associated Diagnosis Comments DERMATOPATHOLOGY Routine 06/30/2024 3:33 AM CELL GENETICIST documented in this encounter Results * DERMATOPATHOLOGY (06/30/2024 3:33 AM CELL GENETICIST) Case Report Dermatopathology Report Case: [id number] Authorizing Provider: Miguel Keen MD Collected: 06/30/2024 03:33 AM Ordering Location: [facility] - Received: 07/02/2024 03:26 PM DermPath Lab Pathologist: Carine Mosley MD Specimens: A) - Skin, left upper back 7 cm left of spine B) - Skin, left upper back 4 cm left of spine 12:13 PM CELL GENETICIST DERMATOPATHOLOGY LABORATORY Amended Report Due to a clerical error, specimen A changed to 7 cm left of spine and specimen B changed to 4 cm left of spine. 12:13 PM [facility] DERMATOPATHOLOGY LABORATORY Final Diagnosis Specimen A. 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 SKIN, left upper back 4 cm left of spine: DERMAL SCAR (L90.5) (see microscopic description) 12:13 PM [facility] DERMATOPATHOLOGY LABORATORY Amendment electronically signed by Carine Mosley MD on 07/12/2024 at 12:13 PM Clinical History A-B: R/O BCC vs SCC vs Scar. Check margins 12:13 PM [facility] DERMATOPATHOLOGY LABORATORY Gross Description Specimen A: Received is one formalin filled container labeled with the patients name and designated left upper back 7 cm left of spine. The specimen consists of a shave removal measuring 79j26e6 mm. Jar 0. Specimen B: Received is one formalin filled container labeled with the patients name and designated left upper back 4 cm left of spine. The specimen consists of a shave removal measuring 13x9x1 mm. Jar 0. 12:13 PM [facility] DERMATOPATHOLOGY LABORATORY Microscopic Description Specimen A. SKIN, left upper back 7 cm left of spine: The epidermis shows parakeratosis, full thickness disorderly maturation of keratinocytes, mitoses at different levels, and dyskeratotic cells. This lesion is not present at the sampled margin of the specimen. Specimen B. SKIN, left upper back 4 cm left of spine: There are fibroblasts and collagen bundles oriented parallel to the skin surface with elongated blood vessels, some of which are oriented perpendicular to the skin surface. There is no evidence of epithelial dysplasia or malignancy in the sections examined. 12:13 PM [facility] DERMATOPATHOLOGY LABORATORY Disclaimer An external and internal positive and negative controls are appropriate for the histochemical, immunohistochemical and immunofluorescence stain(s) in this case (if any), except where stated explicitly. The performance characteristics of the stain(s) cited in this report were developed and its performance characteristic determined by the Dermatopathology Laboratory at [facility], directed by Dr. Nickolas Hung. These tests need not be, and therefore are not, approved by the [place] Food and Drug Administration. The tests are used for clinical purposes. Billing Codes Specimen Charges Stain Charges 66220 62483 1 1 4 12:13 PM CELL GENETICIST DERMATOPATHOLOGY LABORATORY Embedded Images 12:13 PM CELL GENETICIST DERMATOPATHOLOGY LABORATORY Pathology/Cytology TISSUE SPECIMEN FROM SKIN / Unknown 06/30/2024 3:33 AM CELL GENETICIST 07/02/2024 3:26 PM CELL GENETICIST Miscellaneous samples (specimen) TISSUE SPECIMEN FROM SKIN / Unknown 06/30/2024 3:33 AM CELL GENETICIST 07/02/2024 3:26 PM CELL GENETICIST Miguel Keen MD LAB - PATHOLOGY/CYTO LOGY ORDERABLES DERMATOPATHOLOGY LABORATORY [facility] - Department of Dermatology [facility] Medicine [address] [place] [address], [address] [phone] documented in this encounter Visit Diagnoses Not on filedocumented in this encounter Care Teams Child Care Lead Teacher Relationship Specialty Start Date End Date Jeet Bautista MD [address] [place] [address] PCP - General 12/23/12 documented as of this encounter
--- OUTSIDE RECORDS SUMMARY | 2024-10-21 15:26 | XMS_ITS | Encounter Summary ---
Author Organization [facility] Health Address [address] [facility] [place] [address] Care Team Providers Care Program Research Specialist Name Role Phone Jeet Bautista MD Primary Care Provider [phone] Encounter Details Date Type Department Care Team (Late st Contact Info) Description 04/10/2020 Lab Requisition [facility] DermPath Lab [address] [place] [address] Ed Medina MD [address] [place] [address] Social History Tobacco Use Types [...] Priority Date/Time Associated Diagnosis Comments DERMATOPATHOLOGY Routine 04/06/2020 12:0 0 AM CDT documented in this encounter Results * DERMATOPATHOLOGY (04/06/2020 12:00 AM CDT) Case Report Dermatopathology Report Case: [id number] Authorizing Provider: Ed Medina MD Collected: 04/06/2020 12:00 AM Ordering Location: [facility] DermPath Lab Received: 04/10/2020 06:57 AM Pathologist: Michael Hung MD Specimen: Skin, right wrist 0 2:31 PM CDT DERMATOPATHOLOGY LABORATORY Final Diagnosis Specimen A. SKIN, right wrist: HYPERPLASTIC (HYPERTROPHIC) ACTINIC KERATOSIS (L57.0) 0 2:31 PM CDT DERMATOPATHOLOGY LABORATORY Clinical History SCCA vs AK. Path # [id number]. 0 2:31 PM CDT DERMATOPATHOLOGY LABORATORY Gross Description Specimen A: Received is one formalin filled container labeled with the patient's name and designated right wrist. The specimen consists of a shave biopsy measuring 4b0w3ty. Jar 0. 0 2:31 PM CDT DERMATOPATHOLOGY LABORATORY Microscopic Description Specimen A. SKIN, right wrist: There is hyperkeratosis alternating with parakeratosis. There is epidermal hyperplasia with disorderly maturation of keratinocytes with nuclear pleomorphism confined to the lower half of the epidermis. 0 2:31 PM CDT DERMATOPATHOLOGY LABORATORY Disclaimer An external and internal positive and negative controls are appropriate for the histochemical, immunohistochemical and immunofluorescence stain(s) in this case (if any), except where stated explicitly. The performance characteristics of the stain(s) cited in this report were developed and its performance characteristic determined by the Dermatopathology Laboratory at [facility], directed by Dr. Nickolas Hung. These tests need not be, and therefore are not, approved by the [place] Food and Drug Administration. The tests are used for clinical purposes. Billing Codes Specimen Charges Stain Charges 98866 1 0 2:31 PM CDT DERMATOPATHOLOGY LABORATORY Embedded Images 0 2:31 PM CDT DERMATOPATHOLOGY LABORATORY Pathology/Cytolog y TISSUE SPECIMEN FROM SKIN / Unknown 04/06/2020 04/10/2020 6:57 AM CDT Ed Medina MD LAB - PATHOLOGY/CYTO LOGY ORDERABLES DERMATOPATHOLOGY LABORATORY [facility] - Department of Dermatology [facility]/[address] [phone] documented in this encounter Visit Diagnoses Not on filedocumented in this encounter Care Teams Program Research Specialist Relationship Specialty Start Date End Date Jeet Bautista MD [address] [place] [phone] PCP - General 12/23/12 documented as of this encounter
--- OUTSIDE RECORDS SUMMARY | 2024-10-21 15:26 | XMS_ITS | Continuity of Care Document ---
Author Organization [facility] Address [address] [place] [address] [place] [address] Phone Care Team Providers Care Turbinated Bone Grinder Name Role Phone Kiran Barajas Unavailable Unavailable [...] Copied on Encounter Office/outpat ient Visit, Est Located within [facility], [address] [place] [address] [address], [place], [place], [id number], [place] tel:[phone] [facility] No Information 0 Jenn Beck. [address] [address], [place], [address], [place]. tel:[phone] Referring Provider: Kiran shultz [address] [facility] [address], [place], [place], [facility]. tel:[phone] Located within [facility], [address], [place], [place], [id number], [place] tel:[phone] [facility] No Information Nov-0 5-200 9 Krishnasamy Kiran. [address] [facility] [address], [place], [facility], [place]. tel:[phone] Referring Provider: Kiran shultz, [address] [facility], [place], [place], [facility]. tel:[phone] [facility], [address], [place], [place], [id number], [place] tel:[phone] [facility] No Information Oct-3 0-200 9 Krishnasamy Kiran. [facility] [address], [place], [facility], [place]. tel:[phone] Referring Provider: Kiran shultz, [address] [place], [place] [address]ate [place] [address], [place], [place], [facility]. tel:[phone] Located within [facility], [address], [place], [place], [id number], [place] tel:[phone] [facility] No Information Sep-1 8-200 9 Krishnasamy Kiran. [facility] [address], [place], [facility], [place]. tel:[phone] Office/outpat ient Visit, Est Located within [facility], [address], [place], [place], [id number], [place] tel:[phone] [facility] No Information Estevan-1 6-200 8 Krishnasamy Kiran. [facility] [address], [place], [facility], [place]. tel:[phone] Referring Provider: Kiran shultz, [facility] [address], [place], [place], [facility]. tel:[phone] Located within [facility], [address], [place], [place], [id number], tel:[phone] [facility] No Information 5200 8 Jenn Beck. [address] [facility] [address], [place], [address], [place]. tel:[phone] Referring Provider: Glenn Lees, [address] [facility] [place], [address] . tel:[phone] [facility], [address] [facility] [address], [place], [place], [id number], tel:[phone] [facility] No Information 200 7 Shawn Elizabeth. [address] [facility], [id number], . tel:[phone] Referring Provider: Glenn Lees [address] [facility] [place], [address] . tel:[phone] Family History Family Member Type Diagnosis Age At Onset No Information Payers Payer name Insurance type Covered green party ID Authoriza tikwan(s) [place] [id number] Social History Type Description Quantity Date Captured [...]
--- OUTSIDE RECORDS SUMMARY | 2024-10-21 15:26 | XMS_ITS | Patient Health Summary ---
Author Organization [facility] Address [address] [facility] [place] [address] Care Team Providers Care Division Toll Wire Chief Name Role Phone Jeet Bautista MD Primary Care Provider [phone] Note from [facility] [place][note 2],non-owned Affiliates and Associated Physician Practices is amultiple site organization consisting of ambulatory clinics and hospital sitesin [place], [place], [place] and [place]. This disclosure is being madepursuant to the Care Everywhere program and may not contain all information available regarding this patient. Last updated 18.[facility] Social History Tobacco Use Types Packs/Day Years Used Date Smoking Tobacco: Never Assessed Sex and Gender Information Value Date Recorded Sex Assigned at Not on file Gender Identity Not on file Sexual Orientation Not on file Procedures * DERMATOPATHOLOGY(Performed 06/30/2024) * DERMATOPATHOLOGY(Performed 11/19/2023) * DERMATOPATHOLOGY(Performed 09/11/2022) * DERMATOPATHOLOGY(Performed 04/25/2021) * DERMATOPATHOLOGY(Performed 01/03/2021) * DERMATOPATHOLOGY(Performed 09/18/2020) * DERMATOPATHOLOGY(Performed 04/06/2020) * DERMATOPATHOLOGY(Performed 12/15/2019) * DERMATOPATHOLOGY(Performed 04/07/2019) * DERMATOPATHOLOGY(Performed 02/20/2017) * DERMATOPATHOLOGY(Performed 02/15/2016) * DERMATOPATHOLOGY(Performed 06/17/2014) Results * DERMATOPATHOLOGY (06/30/2024 3:33 AM NEUROSURGERY RESEARCH DIRECTOR) Only the most recent of12 resultswithin the time period is included. Case Report Dermatopathology Report Case: [id number] Authorizing Provider: Miguel Keen MD Collected: 06/30/2024 03:33 AM Ordering Location: [facility] - Received: 07/02/2024 03:26 PM DermPath Lab Pathologist: Carine Mosley MD Specimens: A) - Skin, left upper back 7 cm left of spine B) - Skin, left upper back 4 cm left of spine 12:13 PM NEUROSURGERY RESEARCH DIRECTOR DERMATOPATHOLOGY LABORATORY Amended Report Due to a clerical error, specimen A changed to 7 cm left of spine and specimen B changed to 4 cm left of spine. 12:13 PM NEUROSURGERY RESEARCH DIRECTOR DERMATOPATHOLOGY LABORATORY Final Diagnosis Specimen A. 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 SKIN, left upper back 4 cm left of spine: DERMAL SCAR (L90.5) (see microscopic description) 12:13 PM NEUROSURGERY RESEARCH DIRECTOR DERMATOPATHOLOGY LABORATORY Amendment electronically signed by Carine Mosley MD on 07/12/2024 at 12:13 PM Clinical History A-B: R/O BCC vs SCC vs Scar. Check margins 12:13 PM NEUROSURGERY RESEARCH DIRECTOR DERMATOPATHOLOGY LABORATORY Gross Description Specimen A: Received is one formalin filled container labeled with the patients name and designated left upper back 7 cm left of spine. The specimen consists of a shave removal measuring 67l43q6 mm. Jar 0. Specimen B: Received is one formalin filled container labeled with the patients name and designated left upper back 4 cm left of spine. The specimen consists of a shave removal measuring 13x9x1 mm. Jar 0. 12:13 PM [facility] DERMATOPATHOLOGY LABORATORY Microscopic Description Specimen A. [...] dysplasia or malignancy in the sections examined. 4 12:13 PM NEUROSURGERY RESEARCH DIRECTOR DERMATOPATHOLOGY LABORATORY Disclaimer An external and internal positive and negative controls are appropriate for the histochemical, immunohistochemical and immunofluorescence stain(s) in this case (if any), except where stated explicitly. The performance characteristics of the stain(s) cited in this report were developed and its performance characteristic determined by the Dermatopathology Laboratory at [facility], directed by Dr. Nickolas Hung. These tests need not be, and therefore are not, approved by the [place] Food and Drug Administration. The tests are used for clinical purposes. Billing Codes Specimen Charges Stain Charges 97064 65540 1 1 4 12:13 PM NEUROSURGERY RESEARCH DIRECTOR DERMATOPATHOLOGY LABORATORY Embedded Images 4 12:13 PM NEUROSURGERY RESEARCH DIRECTOR DERMATOPATHOLOGY LABORATORY Pathology/Cytology TISSUE SPECIMEN FROM SKIN / Unknown 06/30/2024 3:33 AM NEUROSURGERY RESEARCH DIRECTOR 07/02/2024 3:26 PM NEUROSURGERY RESEARCH DIRECTOR Miscellaneous samples (specimen) TISSUE SPECIMEN FROM SKIN / Unknown 06/30/2024 3:33 AM NEUROSURGERY RESEARCH DIRECTOR 07/02/2024 3:26 PM NEUROSURGERY RESEARCH DIRECTOR Miguel Keen MD LAB - PATHOLOGY/CYTO LOGY ORDERABLES DERMATOPATHOLOGY LABORATORY [facility] - Department of Dermatology [facility] Medicine [address] [place] [address], [address] [phone] Care Teams Division Toll Wire Chief Relationship Specialty Start Date End Date Jeet Bautista MD [address] [place] [address] PCP - General 12/23/12
== END 2024-10-21 14:09 | disposition home or self-care (01) ==
PROVIDERS: PCP Family Medicine; Visit Provider Family Medicine
DX: Z12.31 Encounter for screening mammogram for malignant neoplasm of breast (principal)
CPT/HCPCS: 77063; 77067

== ENCOUNTER 2025-06-21 15:10 | Outpatient (CLI) | payer MEDICARE, SELFPAY ==
--- OUTSIDE RECORDS SUMMARY | 2010-03-14 07:30 | XMS_ITS | Continuity of Care Document ---
Author Organization 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 Name Role Phone Kiran Barajas Unavailable Unavailable Procedures Procedure Date Office/outpatient Visit, Est Fundus Photography W/ Report Visual Field Examination-Professional No - Visual Field Examination(s) Eye Exam & Treatment No Script Office/outpatient Visit, Est Fundus Photography W/ Report Visual Field Examination(s) Eye Exam & Treatment Fundus Photography W/ Report Advance Directives Directive Yes / No Effective Date File Name No Information Encounters Encounter Description Practice Location Reason(s) For Visit Diagnoses Date Provider Providers Copied on Encounter Office/outpat ient Visit, Est [facility], [address] [place] [address] [address], [place], [place], [id number], [place] tel:[phone] [facility] No Information 0 Jenn Beck. [address] [address], [place], [address], [place]. tel:[phone] Referring Provider: Kiran shultz [address] [facility] [address] [place] [address], [place], [place], [facility]. tel:[phone] [facility], [address] [address], [place], [place], [id number], [place] tel:[phone] [facility] No Information Nov-0 5-200 9 Krishnasamy Kiran. [address] [facility] [address], [place], [facility], [place]. tel:[phone] Referring Provider: Kiran shultz, [address] [facility] [address], [place], [place], [facility]. tel:[phone] [facility] Eye [facility], [address], [place], [place], [id number], [place] tel:[phone] [facility] No Information Oct-3 0-200 9 Krishnasamy Kiran. [facility] [address], [place], [facility], [place]. tel:[phone] Referring Provider: Kiran shultz, [address] [place], [place] [address] [address], [place], [place], [facility]. tel:[phone] [facility], [address] [address], [place], [place], [id number], [place] tel:[phone] [facility] No Information Sep-1 8-200 9 Krishnasamy Kiran. [facility] [address], [place], [facility], [place]. tel:[phone] Office/outpat ient Visit, Est [facility], [address] [address], [place], [place], [id number], [place] tel:[phone] [facility] No Information Estevan-1 6-200 8 Krishnasamy Kiran. [facility] [address], [place], [facility], [place]. tel:[phone] Referring Provider: Kiran shultz, [facility] [address], [place], [place], [facility]. tel:[phone] [facility], [address] [address], [place], [place], [id number], tel:[phone] [facility] No Information 5200 8 Jenn Beck. [address] [facility] [address], [place], [address], [place]. tel:[phone] Referring Provider: Glenn Lees, [address] [facility] [place], [address] . tel:[phone] [facility] Eye [facility], [address] [facility] [facility] [address], [place], [place], [id number], tel:[phone] [facility] No Information 200 7 Shawn Elizabeth. [address] [facility] [place], [id number], . tel:[phone] Referring Provider: Glenn Lees [address] [facility] [place], [address] . tel:[phone] Family History Family Member Type Diagnosis Age At Onset No Information Payers Payer name Insurance type Covered green party ID Authoriza tikwan(s) [place] [id number] Social History Type Description Quantity Date Captured Comments Sex Female Smoking Status No Information Chief Complaint And Reason For Visit No Information Reason For Referral Reason For Referral No Information History Of Present Illness Encounter Date Complaint History Of Prese nt Illness No Information Functional Status Date Functional Assessmen t No Information Instructions Date Instruction Additional Infor mation No Information Assessments Type Assessment Date No Information Patient Care Teams Name Effective Dates (start - stop) Status Members No Information
--- NOTE | ~2025-06-21 | XR_ITS ---
XR lumbar spine 6V w bending 06/21/2025 15:55 Indication: Back pain after fall Procedure: 6 views lumbar spine Comparison: No prior studies for comparison. Findings: There is levoscoliosis of the thoracolumbar spine centered at L1. There is severe lower thoracic and lumbar spondylosis. There are advanced degenerative hypertrophic changes of the facet joints at L3-4, L4-5 and L5-S1 with grade 1 spondylolisthesis at L3-4 and L4-5. No acute fracture or traumatic malalignment. Sacral foramen are symmetric. Impression: 1: Severe thoracolumbar spondylosis with levoscoliosis. Reviewed, dictated and finalized at location O. HT SECURITY SPECIALIST Impression: 1: Severe thoracolumbar spondylosis with levoscoliosis.
--- NOTE | ~2025-06-21 | XR_ITS ---
EXAMINATION: XR ribs BI 3V w CXR 2V, 06/21/2025 15:15 SUTURE GAUGER HISTORY: W19.XXXA - Unspecified fall, initial encounter COMPARISON: No comparisons available. Findings: No acute fracture or malalignment. No significant degenerative changes. Soft tissues unremarkable. Impression: No acute fracture or malalignment. Reviewed, dictated and finalized at location P. RE GAUGER Impression: No acute fracture or malalignment.
--- NOTE | ~2025-06-21 | XR_ITS ---
XR cervical spine min 6V Indication: W19.XXXA - Unspecified fall, initial encounter Comparison: None Findings: Grade 1 anterolisthesis of C6 on C7, no fracture is identified. No subluxation with flexion and extension. Moderate to severe loss of disc height at C7-T1. Soft tissues unremarkable Impression: No acute abnormality. Reviewed, dictated and finalized at location P. BLOCKER Impression: No acute abnormality.
--- NOTE | ~2025-06-21 | XR_ITS ---
EXAMINATION: XR shoulder RT min 2V, 06/21/2025 15:15 RACING CAR DRIVER HISTORY: W19.XXXA - Unspecified fall, initial encounter COMPARISON: No comparisons available. Findings: No acute fracture or malalignment. Moderate degenerative changes Soft tissues unremarkable. Impression: No acute fracture or malalignment. Reviewed, dictated and finalized at location P. NG CAR DRIVER Impression: No acute fracture or malalignment.
== END 2025-06-21 15:11 | disposition home or self-care (01) ==
PROVIDERS: PCP Family Medicine; Visit Provider Nurse Practitioner Family
DX: M19.011 Primary osteoarthritis, right shoulder (principal); R07.89 Other chest pain; M47.815 Spondylosis without myelopathy or radiculopathy, thoracolumbar region; M41.85 Other forms of scoliosis, thoracolumbar region; M43.12 Spondylolisthesis, cervical region; R29.890 Loss of height; W19.XXXA Unspecified fall, initial encounter
CPT/HCPCS: 71046; 71110; 72052; 72114; 73030